=== PATIENT | male | born 1950 | race African-American/Black ===

== ENCOUNTER 2018-09-24 09:57 | Inpatient (IN) ==
--- NOTE | 2018-09-24 11:50 | Diag Imaging Result Doc PS360 ---
EXAM: CHEST-PORTABLE HISTORY: short of breath TECHNIQUE: Single view COMPARISON: 02/11/2018 FINDINGS: The lungs are well expanded. The heart remains mildly enlarged. There is a left-sided pacemaker. No pulmonary edema. No pneumonia. IMPRESSION: Stable mild cardiomegaly. Electronically signed by Ramirez Matt 09/24/2018 11:47 AM
[2018-09-24 12:26] LABS: BASO# 0.04 X1000 (0.0-0.2); BASO% 0.5 % (0.0-0.8); EOS# 0.13 X1000 (0.0-0.7); EOS% 1.7 % (0.0-10.0); HEMATOCRIT 37.7 % (42.0-52.0); HEMOGLOBIN 12.5 g/dL (14.0-18.0); IMM GRAN# 0.09 X1000 (0.0-0.04); IMM GRAN% 1.2 % (0.0-0.5); LYMPH# 1.69 X1000 (1.2-3.4); LYMPH% 22.1 % (20.5-51.1); MCH 29.8 PG (27-31); MCHC 33.2 g/dL (33-37); MONO% 6.5 % (1.7-9.3); NEUT# 5.19 X1000 (1.4-6.5); PLT 156 X1000 (130-400); RBC 4.19 XMIL (4.7-6.1); RDW 14.4 % (11.5-14.5); WBC 7.64 X1000 (4.8-10.8)
[2018-09-24 13:16] LABS: ALB/GLOB RATIO 1.7; ALBUMIN 4.5 g/dL (3.5-5.0); CALCIUM 10.2 mg/dL (8.8-10.2); CREATININE 2.8 mg/dL (0.7-1.2); POTASSIUM 3.4 mmol/L (3.5-5.1); TOTAL BILIRUBIN 0.57 mg/dL (0.20-1.00); TOTAL PROTEIN 7.1 g/dL (6.3-8.3)
[2018-09-24] MEDS ORDERED: LASIX IV ONE (14:28)
[2018-09-24] MEDS ORDERED: TYLENOL PO PRN (14:34)
[2018-09-24 15:47] LABS: CK INDEX 1.3 (0.0-2.5); CK-MB 4.34 ng/mL (0.0-5.0)
--- NOTE | 2018-09-24 16:21 | PROVIDER DOCUMENTATION ---
This chart was entered by Savannah Monsivais Scribe, acting as scribe for Ghazal Beasley MD. HPI-General Adult - General Chief Complaint: Edema Stated Complaint: EDEMA/FOOT Time Seen by Provider: 09/24/18 10:59 Source: patient Allergies/Adverse Reactions: Patient Allergies Allergy/AdvReac Type Severity Reaction Status Date / Time No Known Allergies Allergy Verified 02/11/18 23:07 Home Medications: Home Medication List Medication Instructions Recorded Confirmed Last Taken Type Carvedilol [Coreg] 25 mg PO BID 04/19/13 02/11/18 02/11/18 History Furosemide [Lasix] 40 mg PO BID 04/19/13 02/11/18 02/11/18 History Metolazone [Zaroxolyn] 5 mg PO DAILY 04/19/13 02/11/18 02/11/18 History Potassium Chloride E.r. [Klor-Con] 10 meq PO DAILY 04/19/13 02/11/18 02/11/18 History Spironolactone [Aldactone] 12.5 mg PO DAILY 04/19/13 02/11/18 02/11/18 History LISINOpril [Prinivil] 10 mg PO DAILY 06/11/13 02/11/18 02/11/18 History Levothyroxine [Synthroid] 175 microgm PO DAILY 05/12/15 02/11/18 02/11/18 History Sitagliptin [Januvia] 100 mg PO DAILY 11/01/17 02/11/18 02/11/18 History Colchicine 0.6 mg PO Q6HR PRN #10 cap 12/08/17 02/11/18 Unknown Rx Oxycodone HCl/Acetaminophen 1 ea PO Q4H PRN PRN #10 tab 12/08/17 02/11/18 Unknown Rx [Percocet 7.5-325 mg Tablet] Apixaban [Eliquis] 5 mg PO BID #60 tab 01/30/18 02/11/18 02/11/18 Rx Pregabalin [Lyrica] 100 mg PO BID capsule 01/30/18 02/11/18 02/11/18 Rx - History of Present Illness -Gen Adult Nature of Presenting Problems: Patient is a 67 year old male who presents to the ED with right ankle swelling. Patient's son states swelling has been present for "a while". Patient denies pain to right ankle. Patient states mild shortness of breath. Location of Pain/Injury: reports: none Pain Radiation: reports: no radiation Quality of Pain: reports: none Severity: reports: mild Onset/Duration: reports: other ("a while") Timing: reports: still present Context/Activities at Onset: reports: light activity Modifying Factors: improves with: nothing Associated Symptoms: reports: shortness of breath, other (swelling to right ankle) Similar Symptoms Previously?: Yes Recently seen or treated by another doctor?: No Review of Systems - Adult - REVIEW OF SYSTEMS - ADULT Constitutional: reports: no symptoms reported Eyes: reports: no symptoms reported Ears, Nose, Mouth & Throat: reports: no symptoms reported Cardiovascular: reports: no symptoms reported Respiratory: reports: shortness of breath. denies: cough, wheezing Gastrointestinal: reports: no symptoms reported Genitourinary: reports: no symptoms reported Musculoskeletal: reports: other (right ankle swelling). denies: back pain, neck pain Integumentary: reports: no symptoms reported Neurological: reports: no symptoms reported Psychiatric: reports: no symptoms reported Endocrine: reports: no symptoms reported Hematologic/Lymphatic: reports: no symptoms reported Allergic/Immunologic: reports: no symptoms reported All Other Systems: Reviewed and Negative Past History - Adult - PAST MEDICAL HISTORY-ADULT Review of Records: reports: Nursing Assessment Review, Medications Reviewed, Social history reviewed & non-contributory. Major Childhood Illnesses: reports: denies history Cardiovascular: reports: CHF, HTN, hyperlipidemia, AL, pacemaker Respiratory: reports: COPD Gastrointestinal: reports: GERD Obstetrical/Gynecological: reports: denies history Genitourinary: reports: kidney disease Musculoskeletal: reports: denies history Neurological: reports: CVA Psychiatric: reports: denies history Endocrine/Immune: reports: Diabetes, thyroid disorder Other Conditions: reports: denies history - PRIOR SURGERIES/PROCEDURES Surgical/Procedure History: reports: pacemaker, orthopedic (extremity), other ( thyroidectomy) - IMMUNIZATION STATUS Childhood Immunizations: See Nurse Assessment Flu Vaccine: See Nurse Assessment - FAMILY HISTORY Family History: reviewed, not pertinent - SOCIAL HISTORY Smoking: denies Substance Use: denies Living Situation: family Physical Exam-General - PHYSICAL EXAM-ADULT Initial Vital Signs Reviewed: Yes - CONSTITUTIONAL General Appearance: alert, no apparent distress - HEAD, EARS, NOSE, MOUTH & THROAT HENMT: normal ENT inspection - NECK Neck: normal inspection - RESPIRATORY Respiratory: chest non-tender, lungs clear, normal breath sounds - CARDIOVASCULAR Cardiovascular: normal peripheral pulses, regular rate, rhythm - GASTROINTESTINAL (ABDOMEN) Abdominal Exam: non tender, soft - MUSCULOSKELETAL Extremity: non-tender, swelling (bilateral ankles. right worse than left) - SKIN Integumentary: normal color, normal turgor, warm/dry - NEUROLOGIC Neurologic: grossly normal - PSYCHIATRIC Psych/Mental Status: normal mood/affect, oriented x 3 Progress - PLAN OF CARE/RESULTS Progress/Plan/Lab Results: Vital Signs - 8 hr 09/24/18 10:12 Temperature 97.5 F L Pulse Rate 93 H Respiratory Rate 20 Blood Pressure 106/69 O2 Sat by Pulse Oximetry 100 Result Diagrams: 09/24/18 11:58 09/24/18 11:58 - XRAY 1 XRAY Study: Chest Impression: See EMR Report ( EXAM: CHEST-PORTABLE HISTORY: short of breath TECHNIQUE: Single view COMPARISON: 02/11/2018 FINDINGS: The lungs are well expanded. The heart remains mildly enlarged. There is a left-sided pacemaker. No pulmonary edema. No pneumonia. IMPRESSION: Stable mild cardiomegaly. Electronically signed by Ramirez Matt 09/24/2018 11:47 AM 09/24/18 1147 Interpreting Physician: Ramirez Matt MD Dictated Date/Time: 09/24/18 1147 cc: Ghazal Beasley MD; João Connelly MD) - ULTRASOUND (By Radiology) 1 US Study: Lower Ext (right) Impression: Normal (per US tech. no DVT present.) - CONSULTS/PCP/HOSPITALIST Notification #1 *Consult/PCP/Hospitalist*: TAMIKA Sherman for Hospitalist Time Discussed: 13:54 Reason/Comments: Dr. Beasley consulted with Whit about patient. Consult Disposition: other (repeat EKG and trop.) Departure - Departure Date of Disposition Decision: 09/24/18 Time of Disposition Decision: 14:01 DIAGNOSIS: Leg edema, CHF (congestive heart failure) Disposition: ADMITTED INPATIENT 09 Certified Medical Emergency: Emergent Condition: Stable - Critical Care Note This patient required my direct & personal management of CC.: No Attestation - Physician/ KYLE Attestation The physician spent face to face time with patient:: Yes Advanced Practice Provider documentation review:: Supervising physician onsite and consulted in the evaluation and care of this patient. The physician did have a face to face encounter with the patient. This chart was documented by the indicated scribe, (Savannah Monsivais Scribe) and accurately reflects the services I performed and decisions made by me, Ghazal Beasley MD, as attested by the provider's signature.
--- NOTE | 2018-09-24 16:25 | HISTORY AND PHYSICAL ---
PRIMARY CARE PROVIDER: Dr. João Connelly. STRUCTURAL ANALYSIS ENGINEER: Dr. Beach. CHIEF COMPLAINT: Shortness of breath and right lower extremity swelling. HISTORY OF PRESENT ILLNESS: Mr. Jaime Levi is a 67-year-old, male with a medical history of nonischemic dilated cardiomyopathy, systolic congestive heart failure with an ejection fraction of 25% to 34%, diabetes mellitus type 2, CKD stage 3b, dementia, who now presents with complaints of right lower extremity swelling that has worsened over the last three weeks along with dizziness, nausea, along with complaints of shortness of breath and more difficulty getting around. He does state that occasionally he does have chest pain with the last time being around a month ago. He occasionally gets dizzy just from sitting. He has been taking his Lasix and doubling up on it but states that it has not helped. Upon presentation, he has an elevated troponin. His kidney function is almost at baseline. He has elevation in his proBNP. Will get him admitted and consult Cardiology for acute heart failure. PAST MEDICAL HISTORY: 1. CKD stage 3b. 2. Dilated nonischemic cardiomyopathy. 3. Systolic congestive heart failure with EF of 25% to 34% in September 2017. 4. Diastolic dysfunction. 5. Pulmonary artery hypertension with pulmonary pressure systolic of 48 to 53 mmHg. 6. Iron deficiency anemia. 7. Paroxysmal atrial fibrillation. 8. Hypothyroidism. 9. Diabetes mellitus type 2. 10.Dementia. SURGICAL HISTORY: 1. Biventricular AICD. 2. Thyroidectomy. 3. Carpal tunnel repair. 4. Hemorrhoidectomy. SOCIAL HISTORY: . Lives at home. Son is at bedside. Denies tobacco. Has a history of smoking. Denies alcohol or illicit drug use. FAMILY HISTORY: Denies. ALLERGIES: No known drug allergies. HOME MEDICATIONS: Not verified, but will need to get those reconciled. Looks like the last time they were reconciled was, I believe, January of 2018. These medications include, 1. Coreg 25 mg p.o. twice daily. 2. Lasix 40 mg p.o. twice daily. 3. Synthroid 175 mcg p.o. daily. 4. Lisinopril 10 mg p.o. daily. 5. Zaroxolyn 5 mg p.o. daily. 6. Potassium 10 mEq p.o. daily. 7. Januvia 100 mg p.o. daily. 8. Aldactone 12.5 mg p.o. daily. 9. Colchicine 0.6 mg p.o. every six hours p.r.n. 10.Eliquis 5 mg p.o. twice daily. 11.Percocet 7.5 one tablet p.o. every four hours p.r.n. 12.Lyrica 100 mg p.o. twice daily. REVIEW OF SYSTEMS: A 14-point review of systems are complete and all are negative except as for those mentioned above in HPI. PHYSICAL EXAMINATION: VITAL SIGNS: Temperature 97.5. Heart rate 93. Respiratory rate 20. Blood pressure 106/69. O2 saturation 100% on room air. Height 5 feet 9 inches tall, 225 pounds, BMI 33.2. GENERAL: Mr. Jaime Levi is a 67-year-old male. He is in no acute distress. He is able to answer questions appropriately. HEENT: Atraumatic and normocephalic. Pupils are equal, round and reactive to light. Extraocular movements intact. Mucous membranes moist. NECK: Trachea midline. CARDIOVASCULAR: Irregularly irregular rate and rhythm. No rubs, gallops, or murmurs. He has +2 right lower extremity edema. +1 left lower extremity edema. +2 dorsalis and pedal pulses. +2 radial pulses. Negative for JVD or carotid bruits. PULMONARY: Clear to auscultation with bilateral breath sounds. No accessory muscle use or work of breathing noted. GASTROINTESTINAL: Soft, nontender, nondistended. Positive bowel sounds x4. EXTREMITIES: Moves all extremities equally with full range of motion. NEUROLOGICAL: Alert and oriented x3. Follows commands. Sensory is intact. SKIN: Warm, dry, and intact. LABORATORY DATA: White blood cells 7,000, hemoglobin 12, hematocrit 37, platelet count 156. Sodium 135, potassium 3.4, BUN 73, creatinine 2.8, glucose 205, calcium 10.2, bilirubin 0.57, AST 14, ALT 13. Troponin 0.109. proBNP 1006. Albumin 4.5. IMAGING: Chest x-ray: Stable mild cardiomegaly. ASSESSMENT AND PLAN: 1. Acute on chronic systolic congestive heart failure with history of dilated cardiomyopathy, pulmonary artery hypertension, and diastolic dysfunction. Will give him a one-time dose of 80 of intravenous Lasix and continue him on 40 intravenously twice daily. Will resume home medications for his congestive heart failure and consult Cardiology. Currently waiting for reconciliation of home medications. 2. Chronic kidney disease, stage 3b, with some mild acute kidney injury. The creatinine is only mildly elevated compared to his baseline. Baseline creatinine is anywhere from 1.6 to 2.2 and his creatinine currently now is 2.8. Will monitor daily. 3. Diabetes mellitus type 2. Will do patterned blood glucoses. Sliding scale insulin. 4. History of paroxysmal atrial fibrillation. Will continue with Eliquis once it is verified. 5. Hypothyroidism. Continue Synthroid. 6. Deep venous thrombosis prophylaxis with sequential compression devices. 7. Complaints of right lower extremity edema but it was negative for deep venous thrombosis on ultrasound. Dictated by TAMIKA Solo for Amarjit Dunn MD cc: TAMIKA Solo MD I have seen and examined Mr. Levi today. No family present. He said son was there earlier. I have reviewed his labs and imaging studies. Mr Levi presents with FIELDS with chest discomfort. He seem to be in acute on chronic CHF due to severe dilated ischemic cardiomyopathy. I agree with the above HPI and the plan reflects my opinion discussed with the COAL [employer]IKER. POOJA
[2018-09-24] MEDS: HUMULIN R SUBQ SCH ×2 (17:17→22:40)
--- NOTE | 2018-09-24 17:35 | ED EKG INTERP ---
This chart was entered by Savannah Monsivais Scribe, acting as scribe for Ghazal Beasley MD. EKG Interpretation - EKG Time of EKG reading by physician:: 17:08 EKG Read and Signed by:: Ghazal Beasley EKG Interpretation (*Must complete 3 of following elements*): Abnormal ( nonspecific T wave abnormality.) Rate: 68 Rhythm: sinus rhythm with 1st degree AV block [place]: left Comments: possible left atrial enlargement; nonspecific intraventricular block; Attestation - Physician/ KYLE Attestation The physician spent face to face time with patient:: Yes Advanced Practice Provider documentation review:: Supervising physician onsite and consulted in the evaluation and care of this patient. The physician did have a face to face encounter with the patient. This chart was documented by the indicated scribe, (Savannah Monsivais Scribe) and accurately reflects the services I performed and decisions made by me, Ghazal Beasley MD, as attested by the provider's signature.
[2018-09-24] MEDS: LASIX IV SCH (21:54)
[2018-09-24] MEDS: LYRICA PO SCH (22:40)
[2018-09-24 23:15] LABS: CK INDEX 1.1 (0.0-2.5); CK-MB 4.34 ng/mL (0.0-5.0)
[2018-09-25 05:17] LABS: BASO# 0.06 X1000 (0.0-0.2); BASO% 0.8 % (0.0-0.8); EOS# 0.12 X1000 (0.0-0.7); EOS% 1.6 % (0.0-10.0); HEMOGLOBIN 13.7 g/dL (14.0-18.0); IMM GRAN# 0.05 X1000 (0.0-0.04); IMM GRAN% 0.7 % (0.0-0.5); MCH 29.6 PG (27-31); MCHC 33.4 g/dL (33-37); MCV 88.6 FL (81-99); MONO# 0.44 X1000 (0.11-0.59); MONO% 5.9 % (1.7-9.3); MPV 11.1 FL (7.4-10.4); NEUT# 5.02 X1000 (1.4-6.5); PLT 149 X1000 (130-400); RBC 4.63 XMIL (4.7-6.1); RDW 14.6 % (11.5-14.5); WBC 7.49 X1000 (4.8-10.8)
[2018-09-25 05:23] LABS: INR 1.06; PROTIME 14.6 Seconds (11.0-16.0); PTT 31.5 Seconds (22.3-41.8)
[2018-09-25 05:44] LABS: ALB/GLOB RATIO 1.5; ALBUMIN 4.3 g/dL (3.5-5.0); CALCIUM 9.9 mg/dL (8.8-10.2); CREATININE 2.6 mg/dL (0.7-1.2); MAGNESIUM 1.6 mg/dL (1.5-2.7); POTASSIUM 3.1 mmol/L (3.5-5.1); TOTAL BILIRUBIN 0.8 mg/dL (0.20-1.00); TOTAL PROTEIN 7.2 g/dL (6.3-8.3)
[2018-09-25 06:07] LABS: CK INDEX 0.9 (0.0-2.5); CK-MB 4.2 ng/mL (0.0-5.0)
[2018-09-25] MEDS: HUMULIN R SUBQ SCH ×4 (06:16→20:03)
--- NOTE | 2018-09-25 06:49 | Diag Imaging Result Doc PS360 ---
CHEST-PORTABLE - 09/25/2018 INDICATION: sob COMPARISON: 09/24/2018 FINDINGS: Stable pacemaker. Stable mild cardiomegaly. Pulmonary vascularity is top normal. No infiltrates or edema. IMPRESSION: Cardiomegaly. No change from prior. Electronically signed by David Grey 09/25/2018 6:47 AM
--- NOTE | 2018-09-25 07:23 | EKG Report ---
Test Performed on : 09/25/2018 06:52:06 AM Test Reason : chest pain Blood Pressure : / mmHG Vent. Rate : 091 BPM Atrial Rate : 441 BPM P-R Int : 000 ms QRS Dur : 164 ms QT Int : 432 ms P-R-T Axes : 000 -70 065 degrees QTc Int : 531 ms Atrial fibrillation. Left axis deviation Right bundle branch block Septal infarct , age undetermined Abnormal ECG When compared with ECG of 24-SEP-2018 17:08, (Unconfirmed) Atrial fibrillation. has replaced Sinus rhythm. Right bundle branch block has replaced Nonspecific intraventricular block Septal infarct is now present Confirmed by Jayda GARCIA, Silvano Parra ([id number]) on 09/26/2018 7:00:26 AM
--- NOTE | 2018-09-25 07:33 | EKG Report ---
Test Performed on : 09/24/2018 5:08:42 PM Test Reason : shortness of breath Blood Pressure : / mmHG Vent. Rate : 068 BPM Atrial Rate : 068 BPM P-R Int : 210 ms QRS Dur : 128 ms QT Int : 412 ms P-R-T Axes : 061 -49 074 degrees QTc Int : 438 ms Sinus rhythm. with 1st degree AV block. Possible Left atrial enlargement Left axis deviation Nonspecific intraventricular block Nonspecific T wave abnormality Abnormal ECG When compared with ECG of 11-FEB-2018 21:15, Significant changes have occurred Unconfirmed Result
[2018-09-25] MEDS ORDERED: POTASSIUM CHLORIDE 20% LIQUID PO ONE (08:04)
[2018-09-25] MEDS: LYRICA PO SCH ×2 (08:17→20:06)
[2018-09-25] MEDS: LASIX IV SCH ×2 (08:17→20:02)
--- NOTE | 2018-09-25 08:27 | CARDIOLOGY CONSULTATION ---
DATE: 09/24/2018 REQUESTING PHYSICIAN: Hospitalist Service. REASON FOR CONSULTATION: Congestive heart failure, swelling, dyspnea. HISTORY: Mr. Levi is a pleasant 67-year-old black gentleman who is known to our service. He normally follows with Dr. Beach. At this time, he presented to the emergency room because for the past few days he has noticed progressive swelling of his legs associated with increasing dyspnea. According to his only son who visits him daily, he spends most of the time sleeping, and he walks with a cane a little bit inside the house. Lately, he has been more lethargic and doing less physical action than usual and his legs continue to swell up in spite of seemingly greater doses of diuretics. The patient denies having any chest pain. He seems to be very comfortable lying in bed. As I interview him and I talk to his son, he falls asleep very easily. A chest x-ray was done today that shows cardiomegaly with the presence of an internal cardioverter- defibrillator with no obvious infiltrates. His lungs appear to be relatively clear. The radiologist's report says stable mild cardiomegaly. His 12-lead EKG done a 5:08 p.m. shows sinus rhythm with a first-degree A-V block, left anterior fascicular block, and poor R-wave progression across the precordial leads. PAST HISTORY: The patient's past history is positive for a dilated nonischemic cardiomyopathy. He has had previous heart catheterization in 2007 that revealed a dilated ventricle with depressed systolic function and elevation of left ventricular end diastolic pressure. He has had atrial arrhythmia and he has been ablated for atrial flutter. He has had previous cardioversions. He has hypertension, diabetes mellitus, hypothyroidism. He has some degree of chronic kidney disease. SURGICAL HISTORY: His surgical history has been positive for hemorrhoidectomy and implantation of internal cardioverter-defibrillator. SOCIAL HISTORY: He lives by himself. He has only one son, and he has several grandchildren. He is not a smoker. He is retired. FAMILY HISTORY: Mother had coronary disease. REVIEW OF SYSTEMS: Besides the aforementioned positives in the HPI and H and P , it is really noncontributory. He is really limited to perform physical activity because of dyspnea and also because of some medical arthritis. HOME MEDICATIONS: His home medications listed at the time of this admission include the following: He is supposed to be on Eliquis 5 mg twice a day, Coreg 25 twice a day, colchicine as needed, furosemide 40 mg twice a day, Synthroid 175 mcg daily, lisinopril 10 mg daily, metolazone 5 mg daily, potassium chloride, Lyrica, Januvia, spironolactone. PHYSICAL EXAMINATION: Vital signs: Blood pressure is 91/70, temperature 97.5, pulse 81, respirations 15. General: He is awake, alert, in no distress. He is very pleasant. He follows commands. HEENT: Unremarkable with some suggestion of increased jugular venous pressure. Chest: Diminished breath sounds at the bases, no rales. Heart sounds are regular and rhythmic. I do not hear a gallop or murmur. Abdomen: Soft, nontender, no masses, no hepatomegaly. Extremities: Showed 1+ to 2+ brawny edema. Pulses are diminished. Neurological: Cranial nerves are normal. He answers appropriately. Mentation is normal. BLOOD WORK: His sodium is 135, potassium 3.4, BUN 33, creatinine 2.8. proBNP is 1006. Albumin 4.5. Glucose is 205. IMPRESSION: 1. Patient who has worsening of chronic systolic heart failure, CHF class III to IV, a low ejection fraction. This is a nonischemic dilated cardiomyopathy. 2. History of previous atrial flutter status post ablation. 3. History of ventricular arrhythmia status post implantation of AICD. 4. History of diabetes. 5. History of hypertension. 6. Hypothyroidism. 7. Worsening chronic kidney disease, acute on chronic. RECOMMENDATION: At this time, I would suggest to pursue optimization of his fluid status by adjustment of his diuretics. It might be important to consider a consultation with Nephrology for an expert opinion on management of his case from that renal viewpoint. From the cardiac viewpoint, I will probably cut down on the current doses of carvedilol and try to optimize his potassium levels. We will follow him along. Thank you for the opportunity to participate in his evaluation. Best regards. cc: Aldo Gonzalez MD [facility]ENTERAlber
[2018-09-25] MEDS: ZOFRAN IV PRN (09:15)
--- NOTE | 2018-09-25 09:18 | ECHO REPORT ---
ORDER DATE: 09/24/2018 INDICATION: COPD. Shortness of breath. CHF. Hypertension. Hyperlipidemia. FINDINGS: 1. The right atrium appears normal in size at 3.5 cm. Linear echodensity consistent with device lead is seen in the right heart chambers. 2. Mild tricuspid regurgitation. RV systolic pressure of 51. 3. There is a significant reduction in RV systolic function that appears to be moderate to severe. 4. Trace pulmonic insufficiency. 5. Mild left atrial enlargement at 4.3 cm. 6. No mitral valve prolapse. Mild mitral regurgitation. 7. LV dilatation with an end-diastolic dimension of 7 cm. Normal wall thicknesses with a posterior and interventricular septal wall thickness of 0.9 cm each. Severe reduction in LV systolic function with an estimated EF in the 15 to 20 percent range with severe global hypokinesis. Definity echo contrast was used. No evidence of left ventricular thrombus was identified. 8. The aortic valve appears to open well. There is no evidence of stenosis or insufficiency. The valve is trileaflet. 9. The aorta appears normal in visualized segments. 10. No pericardial effusion seen. cc: MD Whit Lujan CRNP
--- NOTE | 2018-09-25 10:29 | CARDIOLOGY PROGRESS NOTE ---
DATE: 09/25/2018 CHIEF COMPLAINT: Shortness of breath, swelling. SUBJECTIVE: Mr. Levi had an uneventful night. He is not having any pain. He had a pleasant night. He is arousable. He is awake. His legs appear to be slightly less swollen. OBJECTIVE: Vital signs: Temperature 97.1, blood pressure 97/70, pulse 92, respirations 19. General: He is awake. HEENT: Slight prominence of the jugular veins. Chest: Sounds clear to auscultation and percussion. Cardiac: Heart sounds are slightly irregular. I do not hear any gallop or murmur. Abdomen: Obese, nontender. Extremities: Showed trace edema. Neurological: Follows commands, moves four extremities. BLOOD WORK: Hemoglobin 13.7, hematocrit 41%. Sodium 137, potassium 3.1, BUN 70, creatinine 2.6. BUN and creatinine are better than yesterday. CPK is 488. His troponins were 0.109, 0.098, 0.092. His proBNP was 1006. His chest x-ray done yesterday showed stable mild cardiomegaly. IMPRESSION: 1. Patient with chronic systolic heart failure secondary to dilated nonischemic cardiomyopathy. 2. Acute renal dysfunction probably secondary to the low cardiac output state. 3. Obesity. Body mass index 34.5. 4. History of permanent atrial fibrillation. 5. Status post AICD, biventricular. 6. History of hypothyroidism and gout. RECOMMENDATION: At this time, I would suggest to continue present therapy. I would keep him on IV diuretics, replace potassium, and observe. The best intervention at this time may be just to back down on the beta-blockers and also on the vasodilators to try to keep him at a more stable systolic blood pressure to ensure adequate kidney perfusion. At this point in time, I would refrain from initiating inotropic agents. I think that those of carvedilol 25 mg twice a day that he was on may be too much for him. Also, lisinopril may need to be cut down. We will follow him. cc: Aldo Gonzalez MD
[2018-09-25] MEDS: POTASSIUM CHLORIDE 20% LIQUID PO SCH (14:40)
--- NOTE | 2018-09-25 16:19 | PROGRESS NOTE ---
DATE: 09/25/2018 SUBJECTIVE: Mr. Levi was admitted on 09/24/2018, came in. He is a patient followed by Dr. Beach. Dr. João Connelly. A 67-year-old male short of breath, lower extremity swelling. He has a nonischemic dilated cardiomyopathy, systolic congestive heart failure with ejection fraction 25% to 34%, diabetes mellitus type 2, chronic kidney disease stage IIIB, dementia, who presented with complaints of right lower extremity swelling that had worsened over the last 3 weeks. Complains of shortness of breath and more difficulty getting around. He was getting dizzy just from sitting. He has Lasix he had doubled up on, but states it did not seem to help him. PAST MEDICAL HISTORY: 1. Chronic kidney disease stage IIIB. 2. Dilated ischemic cardiomyopathy. 3. Systolic congestive heart failure. Ejection fraction 25% to 34% in September 2017. It was measured. 4. Diastolic dysfunction. 5. Pulmonary artery hypertension. Pulmonary pressures in the 48 to 53 mmHg range. 6. Iron deficiency anemia. 7. Paroxysmal atrial fibrillation. 8. Hypothyroidism. 9. Diabetes mellitus type 2. 10. Dementia. SURGICAL HISTORY: 1. Had a biventricular AICD placed. 2. Status post thyroidectomy. 3. Status post carpal tunnel repair. 4. Hemorrhoidectomy. PHYSICAL EXAMINATION: General: Admitted with acute on chronic systolic congestive heart failure, dilated cardiomyopathy, who is on the unit. He says he feels much better. Breathing much better. He is not eating much. She does not have much appetite at this time. Vital Signs: Temperature 97.9 degrees, pulse 90, respirations 15, blood pressure 118/87. Eyes: Pupils are equal and round. Lungs: Clear in all lung ramirez. Cardiovascular exam: Regular rhythm and rate without murmur or S3. Abdomen: Soft. Skin: Warm and dry. : Urine output was 4200 mL blood sugars 220, 154 and 186. ASSESSMENT AND PLAN: 1. Acute on chronic systolic heart failure. Dilated nonischemic cardiomyopathy. Appears to be doing better. 2. Acute renal dysfunction, probably secondary low cardiac output state. 3. Obesity. Body mass index 34.5. 4. History of permanent atrial fibrillation, rate is controlled. 5. Status post automatic implantable cardioverter defibrillator, biventricular. 6. History of hypothyroidism and gout. BLOOD WORK: Note his blood work from this morning: White count 7490, hematocrit is 41, platelet count is 149,000. Chemistries: Sodium 137, potassium 3.1 chloride 92. BUN 70, creatinine 2.6. Creatinine has come down from 2.8. Review of his orders: Continue his Lasix 40 mg IV q. 12 hours. He is getting potassium supplement 40 mEq daily, Lyrica 75 mg b.i.d. and seems to be doing better. I am going to let him move to the floor. Continue on traffic monitor specialist. cc: Howard Kaba MD
[2018-09-25] MEDS ORDERED: TEARISOL OPH SOLUTION BOTH EYES PRN (19:07)
[2018-09-26 06:06] LABS: CREATININE 2.5 mg/dL (0.7-1.2); MAGNESIUM 1.8 mg/dL (1.5-2.7); POTASSIUM 3.5 mmol/L (3.5-5.1)
[2018-09-26] MEDS: HUMULIN R SUBQ SCH ×4 (06:42→21:40)
[2018-09-26] MEDS: POTASSIUM CHLORIDE 20% LIQUID PO SCH (08:15)
[2018-09-26] MEDS: LASIX IV SCH (08:15)
[2018-09-26] MEDS: LYRICA PO SCH ×2 (08:15→21:39)
[2018-09-26] MEDS ORDERED: JANUVIA PO SCH (09:00)
--- NOTE | 2018-09-26 09:11 | PROGRESS NOTE ---
DATE: 09/26/2018 SUBJECTIVE: Mr. Levi is sitting up. He says he feels good. He is ready go home. He is still hurting. We need to adjust his Lyrica up. He is taking 150 mg of Lyrica twice a day. He remains afebrile. OBJECTIVE: Vital Signs: Temperature 97.2 degrees, pulse 112, respirations 14, blood pressure 107/70. HEENT: Pupils are equal and round. Lungs: Clear in all lung ramirez. Cardiovascular Examination: Regular rhythm and rate without murmur or S3. Abdomen: Soft. Skin: Warm and dry. Is and Os: Urine output is 3700 mL. Laboratory Data: Blood sugar 154, 186, 178. ASSESSMENT AND PLAN: 1. Patient with chronic systolic heart failure secondary to dilated nonischemic cardiomyopathy. We are going to continue present therapy. I am going to keep him on intravenous diuretics, replace the potassium, and observe. The beta blockers, we backed down on those. He is also on vasodilators to keep him more stable. He wanted to refrain from initiating inotropic agents. He feels that the Coreg is probably too much for him and the lisinopril may need to be cut down. We are going to move him to the floor. I will discuss with cardiology and see if they think he is ready go home this afternoon. 2. Acute renal dysfunction, probably secondary to low cardiac output. His creatinine is at 2.5. When he presented, it was 2.8 so it appears to have improved. 3. Obesity. Body index is 34.5. 4. History of permanent atrial fibrillation. Rate appears controlled. 5. Status post automatic implantable cardioverter defibrillator, biventricular. 6. History of hypothyroidism. 7. History of gout. 8. Chest x-ray from yesterday, cardiomegaly, really no change, stable pacemaker. Pulmonary vascularity is top normal. No infiltrates or edema. His blood pressures are running between 92-129/64-84. CURRENT ORDERS: Still on Lasix 40 mg q.12. We increased the Lyrica to 150 mg b.i.d. cc: Howard Kaba MD
[2018-09-26] MEDS: ALDACTONE PO SCH (09:49)
[2018-09-26] MEDS: SYNTHROID PO SCH (09:49)
[2018-09-26] MEDS: ELIQUIS PO SCH ×2 (09:49→21:40)
--- NOTE | 2018-09-26 13:39 | EKG Report ---
Test Performed on : 09/26/2018 11:48:28 AM Test Reason : NO EKG ORDER FOR MUSE Blood Pressure : / mmHG Vent. Rate : 105 BPM Atrial Rate : 105 BPM P-R Int : 000 ms QRS Dur : 150 ms QT Int : 354 ms P-R-T Axes : 000 -72 069 degrees QTc Int : 467 ms Wide QRS rhythm. Left axis deviation Nonspecific intraventricular block Abnormal ECG When compared with ECG of 25-SEP-2018 06:52, Wide QRS rhythm. has replaced Atrial fibrillation. Confirmed by Jayda GARCIA, Silvano Parra ([id number]) on 09/27/2018 7:10:32 AM
--- NOTE | 2018-09-26 15:56 | PROGRESS NOTE ---
DATE: 09/26/2018 SUBJECTIVE: Patient continues without chest discomfort or dyspnea on room air. OBJECTIVE: Blood pressure 136/100, heart rate 108, and oxygen saturation 96% on room air.Neck: Neck vein distention is not evident. Chest: Clear to auscultation bilaterally. Cardiovascular: Reveals irregular rate and rhythm without appreciable murmur or gallop. Extremities: Without edema. DIAGNOSTIC: Telemetry demonstrates atrial fibrillation. He previously had been in sinus rhythm earlier during this hospital stay. LABORATORY DATA: Sodium 137, potassium 3.5, chloride 94, carbon dioxide 27, BUN 62, creatinine 2.5 and glucose 178. IMPRESSION: 1. Acute on chronic systolic heart failure. This appears to improve with diuresis. 2. Severe nonischemic cardiomyopathy. 3. Moderate pulmonary hypertension with evidence of right ventricular dysfunction on echocardiography. 4. Obesity. 5. Paroxysmal atrial fibrillation. Patient in sinus rhythm on admission but now in atrial fibrillation. 6. Status post biventricular implantable defibrillator/pacemaker. 7. Hypothyroidism. RECOMMENDATIONS: 1. Status post biventricular pacemaker/implantable defibrillator. 2. Acute on chronic renal dysfunction. 3. Resume Coreg at 6.25 mg p.o. b.i.d. 4. Switch from IV Lasix to 40 mg p.o. daily. 5. May consider putting patient back on amiodarone after review of office records. The patient apparently had been amiodarone in the past but this has been discontinued. cc: Josue Beach MD
[2018-09-26] MEDS: COREG PO SCH (21:40)
[2018-09-27] MEDS: ZOFRAN IV PRN ×2 (00:21→10:06)
[2018-09-27] MEDS: HUMULIN R SUBQ SCH ×4 (06:45→21:20)
--- NOTE | 2018-09-27 10:00 | PROGRESS NOTE ---
DATE: 09/27/2018 SUBJECTIVE: Mr. Levi said he did not sleep much. They just kept waking him up and he says his breathing is doing all right. He is concerned about his left foot underneath his 5th metatarsal. Just very sore. I do not see any ulcers there. He has calluses on both feet, but I do not see any open ulcer, but it is tender to him and hurts for him to stand up on his left foot. He said something needs to be done. OBJECTIVE: Vital Signs: Temperature 98.3, pulse 87, respirations 16, blood pressure 111/68. Eyes: Pupils are equal and round. Lungs: Clear in all lung ramirez. Cardiovascular: Regular rhythm and rate without murmur or S3. Blood sugar 178, 186, 186. ASSESSMENT AND PLAN: 1. Acute on chronic systolic heart failure, which has improved with diuresis. 2. Severe nonischemic cardiomyopathy. 3. Moderate pulmonary hypertension. No evidence of right ventricular dysfunction on echocardiogram. 4. Obesity. 5. Paroxysmal atrial fibrillation, rate is controlled. 6. Status post biventricular pacemaker defibrillator. 7. Hypothyroidism. Appears euthyroid. 8. Complaining of his left foot. We will get an x-ray of that foot. He had acute renal dysfunction, probably secondary to low cardiac output. His renal function seems to be stable. Creatinine is 2.5, it was 2.8 when he came in. So, we will continue present measures. We will get an x-ray of that foot. cc: Howard Kaba MD
[2018-09-27] MEDS: SYNTHROID PO SCH ×2 (10:29→13:53)
[2018-09-27] MEDS: LYRICA PO SCH ×3 (10:29→22:27)
[2018-09-27] MEDS: POTASSIUM CHLORIDE 20% LIQUID PO SCH ×2 (10:29→13:55)
[2018-09-27] MEDS: ALDACTONE PO SCH ×2 (10:29→13:54)
[2018-09-27] MEDS: COREG PO SCH ×2 (10:30→22:27)
[2018-09-27] MEDS: ELIQUIS PO SCH ×3 (10:30→22:27)
[2018-09-27] MEDS: LASIX PO SCH ×2 (10:30→13:53)
[2018-09-27] MEDS: JANUVIA PO SCH ×2 (10:31→13:54)
--- NOTE | 2018-09-27 12:39 | Diag Imaging Result Doc PS360 ---
EXAM: FOOT 2 VIEWS LEFT INDICATION: L 5th metatarsal pain TECHNIQUE: 2 views COMPARISON: None. FINDINGS: There is irregularity involving the distal shaft of the fifth metatarsal. However, it has the appearance of an old fracture that has healed. Please correlate clinically. There is mild bone spurring at the calcaneus at the Achilles insertion. There is no discrete fracture, dislocation, or significant intrinsic osseous lesion, otherwise. The visualized joint spaces are essentially unremarkable. The surrounding soft tissues are essentially unremarkable by plain radiograph. IMPRESSION: Irregularity involving the distal shaft of the fifth metatarsal with a chronic appearance. No evidence of acute osseous abnormality, otherwise. Electronically signed by Jb Watt 09/27/2018 12:36 PM
--- NOTE | 2018-09-27 15:47 | Extremity Venous Study ---
PROCEDURE NAME: Venous U/S Right Leg - 09/24/2018 RADIATION THERAPIST: Lenin. REQUESTING PHYSICIAN: Dr. Beasley. INDICATIONS: Edema and pain in the right foot. FINDINGS: Deep superficial veins of right lower extremity were visualized along their course. All vessels appeared compressible with forward flow. No evidence of intraluminal thrombus. SUMMARY: No deep or superficial venous thrombosis seen in the right lower extremity. There was reflux [*]the left common femoral vein. cc: Manuel Gaxiola MD
[2018-09-28] MEDS: HUMULIN R SUBQ SCH (07:57)
[2018-09-28 08:43] VITALS: BP 106/71
[2018-09-28] MEDS: LASIX PO SCH (09:39)
[2018-09-28] MEDS: JANUVIA PO SCH (09:39)
[2018-09-28] MEDS: ELIQUIS PO SCH (09:39)
[2018-09-28] MEDS: SYNTHROID PO SCH (09:40)
[2018-09-28] MEDS: ALDACTONE PO SCH (09:40)
[2018-09-28] MEDS: LYRICA PO SCH (09:40)
[2018-09-28] MEDS: COREG PO SCH (09:40)
[2018-09-28] MEDS: POTASSIUM CHLORIDE 20% LIQUID PO SCH (09:41)
--- NOTE | 2018-09-28 10:36 | DISCHARGE SUMMARY ---
ADMISSION DATE: 09/24/2018 DISCHARGE DATE: 09/28/2018 HISTORY OF PRESENT ILLNESS: He is a patient of Dr. João Connelly, presented on 09/24/2018. This is a 67-year-old male, with a medical history of nonischemic cardiomyopathy, systolic congestive heart failure, ejection fraction around 25 to 34 percent, diabetes mellitus type 2, chronic kidney disease stage IIIB, dementia, presented complaining of right lower extremity swelling that has worsened over the last 3 weeks along with dizziness, nausea, complaints of shortness of breath and more difficulty getting around. He has occasionally had some chest pain over last month where he does get dizzy just from sitting. PAST MEDICAL HISTORY: Reviewed again. 1. Chronic kidney disease stage 3B. 2. Dilated nonischemic cardiomyopathy. 3. Systolic congestive heart failure. Ejection fraction 25 to 34 percent, September 2017. 4. Diastolic dysfunction. 5. Pulmonary artery hypertension. Pulmonary systolic pressure is 48 to 53 mmHg. 6. Iron deficiency anemia. 7. Paroxysmal atrial fibrillation. 8. Hypothyroidism. 9. Diabetes mellitus type 2. 10. Dementia. SURGICAL HISTORY: 1. Biventricular AICD. 2. Thyroidectomy. 3. Carpal tunnel repair. 4. Hemorrhoidectomy. ADMISSION DIAGNOSES: 1. Admitted with acute on chronic systolic congestive heart failure, history of dilated cardiomyopathy, pulmonary arterial hypertension, diastolic dysfunction. Gave him a 1 time dose of 80 mg of Lasix initially and then continued on 40 mg twice a day, and he showed good improvement and good compensation. Able to move him out of the unit to the floor. 2. Chronic kidney disease stage 3B. His baseline creatinine is somewhere between 1.6 and 2.2. On admission, his creatinine was 2.8. It came down to 2.5. He was feeling better, breathing comfortably. 3. Diabetes mellitus type 2. Sugars under good control. 4. History of paroxysmal atrial fibrillation. Continue Eliquis. The rate has been controlled. 5. History of hypothyroidism. Appears to be euthyroid so he was requesting to go home. Dr. Beach had been following for cardiology. He improved markedly with diuresis. DISCHARGE DIAGNOSES: 1. Acute on chronic systolic heart failure. Improved with diuresis. 2. Severe nonischemic cardiomyopathy. 3. Moderate pulmonary hypertension and evidence of right ventricular dysfunction on echocardiogram. 4. Obesity. 5. Paroxysmal atrial fibrillation. Rate has been controlled. The patient remained in sinus rhythm during this admission. 6. Status post biventricular implantable defibrillator pacemaker. 7. Hypothyroidism history. He appears to be euthyroid so plan to discharge home. RECOMMENDATION: Status post biventricular pacemaker implantable defibrillator which is functioning well. Renal function seems to have improved. Can resume the Coreg at 6.25 mg b.i.d., and switch him to Lasix p.o. DISCHARGE MEDICATIONS: 1. Eliquis 5 mg b.i.d. 2. He will take his Artificial Tears as needed. 3. Coreg 6.25 mg twice a day. 4. Lasix 40 mg daily every morning. 5. Synthroid 125 mcg a day. 6. Lyrica 150 mg b.i.d. 7. Januvia 100 mg daily. 8. Aldactone 12.5 mg daily. FOLLOWUP: Follow up with his primary care physician. Follow up with Cardiology. cc: Howard Kaba MD
== END 2018-09-28 11:21 | disposition home or self-care (01) | DRG 291 ==
LOC: ED 09:57 → SUATTDRO 15:40 → EDIPHOLD 15:40 → ICU 18:20 → 4N 09-26 13:13
PROVIDERS: ATTEND Emergency Medicine
CPT/HCPCS: 71010; 71045; 73620; 80048; 80053; 82550; 82553; 82948; 83735; 83880; 84484; 85025; 85610; 85730; 93005; 93010; 93306; 93971; 94761; 94799; 96374; 99285; A9270; C8929; J1940; J2405; Q9957; XXXXX

== ENCOUNTER 2018-11-09 08:56 | Inpatient (IN) ==
[2018-11-09 09:47] LABS: BASO# 0.04 X1000 (0.0-0.2); BASO% 0.5 % (0.0-0.8); EOS# 0.02 X1000 (0.0-0.7); EOS% 0.2 % (0.0-10.0); HEMATOCRIT 43.2 % (42.0-52.0); HEMOGLOBIN 14.2 g/dL (14.0-18.0); IMM GRAN# 0.03 X1000 (0.0-0.04); IMM GRAN% 0.3 % (0.0-0.5); LYMPH% 13.7 % (20.5-51.1); MCH 29.8 PG (27-31); MCHC 32.9 g/dL (33-37); MCV 90.6 FL (81-99); MONO# 0.63 X1000 (0.11-0.59); MONO% 7.2 % (1.7-9.3); MPV 11.2 FL (7.4-10.4); NEUT# 6.83 X1000 (1.4-6.5); NEUT% 78.1 % (42.2-75.2); PLT 143 X1000 (130-400); RBC 4.77 XMIL (4.7-6.1); RDW 15.1 % (11.5-14.5); WBC 8.75 X1000 (4.8-10.8)
[2018-11-09 09:52] LABS: URINE SOURCE CATH
--- NOTE | 2018-11-09 09:55 | PROVIDER DOCUMENTATION ---
This chart was entered by Debra Garcia Scribe, acting as scribe for Ramona Moctezuma CRNP. HPI-Abdominal Pain/GI Problem - General Chief Complaint: Abdominal Pain Stated Complaint: abd pain Time Seen by Provider: 11/09/18 09:08 Source: patient, family (ex-), EMS Allergies/Adverse Reactions: Patient Allergies Allergy/AdvReac Type Severity Reaction Status Date / Time No Known Allergies Allergy Verified 02/11/18 23:07 Home Medications: Home Medication List Medication Instructions Recorded Confirmed Last Taken Type Apixaban [Eliquis] 5 mg PO BID #60 tab 01/30/18 09/25/18 02/11/18 Rx Pregabalin [Lyrica] 75 mg PO BID 09/25/18 09/25/18 Unknown History Furosemide [Lasix] 40 mg PO DAILY 30 Days #30 tab 09/28/18 Unknown Rx Potassium Chloride E.r. [Klor-Con] 10 meq PO DAILY 30 Days #30 tab 09/28/18 Unknown Rx Carvedilol [Coreg] 12.5 mg PO BID 11/09/18 11/09/18 Unknown History Colchicine 0.6 mg PO DAILY 11/09/18 11/09/18 Unknown History Hydralazine [Apresoline] 1 tab PO TID 11/09/18 11/09/18 Unknown History LISINOpril [Prinivil] 5 mg PO DAILY 11/09/18 11/09/18 Unknown History Metolazone 5 mg PO Q3DAYS 11/09/18 11/09/18 Unknown History - History of Present Illness-ABD Nature of Presenting Problems: 67 yobm presents to the ed via ems with c/o abdominal pain. pt poor historian d/t CVA hx and dementia. ex- is at bedside and sts took pt to [facility] ed on Monday for ankle edema and pt was given Lasix and dc. ex- sts pt has been declined since going back home. pt c/o nausea, diarrhea, sob, cough, BLE edema, decreased PO. pt was seen at [facility] on 11/06 and medication changes were made and pt told to become established with Dr. Hewitt. pt has low o2 @ 85% on 2LPM, tachycardia 127 and BP 162/110. Abdominal Pain Onset Location: reports: generalized abdomen Quality of Pain: reports: cramping Severity in ED: reports: moderate Onset/Duration: reports: 4 days ago Timing: reports: still present, getting worse Activities at Onset: reports: light activity Exposure to sick contacts?: No Modifying Factors: improves with: nothing. worse with: movement Associated Symptoms: reports: cough, diarrhea, loss of appetite, nausea, shortness of breath. denies: arm pain, back/neck pain, chest pain, diaphoresis, dizziness, fever/chills, headaches, vomiting Last BM: this morning Dark Stools Present?: reports: none noticed Rectal Bleeding: reports: none # of Diarrhea Episodes: 2 Rectal Pain: reports: none # of Vomiting Episodes: 0 Emesis Description: reports: none Bruising or Bleeding Gums?: No Similar Symptoms Previously?: No Recently seen or treated by another doctor?: Yes Review of Systems - Adult - REVIEW OF SYSTEMS - ADULT ROS:: ROS per family (exwife) Constitutional: denies: chills, fever Eyes: reports: no symptoms reported Ears, Nose, Mouth & Throat: reports: no symptoms reported Cardiovascular: reports: edema. denies: chest pain, palpitations Respiratory: reports: see HPI, cough, dyspnea on exertion, shortness of breath. denies: wheezing Gastrointestinal: reports: see HPI, abdominal pain, diarrhea, nausea. denies: vomiting Genitourinary: reports: no symptoms reported Musculoskeletal: reports: no symptoms reported Integumentary: reports: no symptoms reported Neurological: reports: tremors. denies: dizziness/vertigo, headache/migraines, loss of balance, numbness, paresthesia, syncope Psychiatric: reports: no symptoms reported Endocrine: reports: no symptoms reported Hematologic/Lymphatic: reports: no symptoms reported Allergic/Immunologic: reports: no symptoms reported All Other Systems: Reviewed and Negative Past History - Adult - PAST MEDICAL HISTORY-ADULT Review of Records: reports: Old Records Reviewed, Nursing Assessment Review, Medications Reviewed, Social history reviewed & non-contributory. Major Childhood Illnesses: reports: denies history Cardiovascular: reports: A-Fib, CHF, HTN, hyperlipidemia, IA, pacemaker Respiratory: reports: denies history Gastrointestinal: reports: GERD, GI bleed Genitourinary: reports: kidney disease Musculoskeletal: reports: denies history Hand Dominance: Right Handed Neurological: reports: CVA, stroke deficits (trouble with speech), dementia Psychiatric: reports: denies history Endocrine/Immune: reports: Diabetes, thyroid disorder Diabetes Type: Type 2 Other Conditions: reports: denies history - PRIOR SURGERIES/PROCEDURES Surgical/Procedure History: reports: appendectomy, pacemaker, orthopedic (extremity) (recently began staying w/ex on 11/05), other (thyroidectomy) - IMMUNIZATION STATUS Childhood Immunizations: See Nurse Assessment Flu Vaccine: See Nurse Assessment - FAMILY HISTORY Family History: reviewed, not pertinent - SOCIAL HISTORY Smoking: quit greater than 1 year Substance Use: denies Living Situation: alone Physical Exam-General - PHYSICAL EXAM-ADULT Initial Vital Signs Reviewed: Yes - CONSTITUTIONAL General Appearance: alert, moderate distress, obese - EYES Eyes: PERRL/EOMI, pale conjunctivae - HEAD, EARS, NOSE, MOUTH & THROAT HENMT: negative: moist mucous membranes (dry oral) - NECK Neck: non-tender, normal inspection - RESPIRATORY Respiratory: lungs clear, normal breath sounds, respiratory distress (increased work of breathing), increased rate. negative: accessory muscle use, crackles, rales, rhonchi, stridor, wheezing - CARDIOVASCULAR Cardiovascular: normal peripheral pulses, tachycardia (128). negative: no edema (+1 BLE edema) - GASTROINTESTINAL (ABDOMEN) Abdominal Exam: soft, abnormal bowel sounds, distended, guarding, tenderness. negative: McBurney's point tenderness, Rovsing's sign - LYMPHATIC Lymphatic: no adenopathy - MUSCULOSKELETAL Back Exam: normal inspection, no CVA tenderness, no vertebral tenderness Extremity: normal range of motion, normal inspection - SKIN Integumentary: normal color, normal turgor, warm/dry - NEUROLOGIC Neurologic: grossly normal (pt is at baseline per ex-) - PSYCHIATRIC Psych/Mental Status: anxious Progress - PLAN OF CARE/RESULTS Progress/Plan/Lab Results: Lab results, imaging results, and plan of care discussed with patient and ex- who verbalize understanding. Plan of care discussed and formulated with Dr. Beasley, who also saw the patient. Result Diagrams: 11/09/18 09:09 11/09/18 09:09 - REASSESSMENT Reassessment #1 Time Reassessed: :25 Status: unchanged Reassessment #2 Time Reassessed: 10:09 Status: improving - EKG 1 Time of EKG reading by physician:: 09:03 EKG Read and Signed by:: Ghazal Beasley EKG Interpretation (*Must complete 3 of following elements*): Abnormal Rate: 127 Rhythm: accelerated junctional rhythm w/ occ pvc Drummonds: left (deviation) QRS: RBB (incomplete) VA Interval: normal ST Wave: normal Comments: possible anterior infarct, age ndetermined - XRAY 1 XRAY Study: Chest Impression: See EMR Report (EXAM: CHEST-2 VIEWS HISTORY: SOB TECHNIQUE: Chest two views COMPARISON: 10/26/2018 FINDINGS: The lungs are well expanded. The heart is enlarged. There are infiltrates in the upper lungs. No pleural effusions. There is a left-sided pacemaker. IMPRESSION: Cardiomegaly with upper lung infiltrates Electronically signed by Ramirez Matt 11/09/2018 10:03 AM 11/09/18 1003 Interpreting Physician: Ramirez Matt MD Dictated Date/Time: 11/09/18 1002 cc: Ramona Moctezuma; João Connelly MD) - CT/MRI 1 CT Study: Abdomen, Pelvis Impression: See EMR Report (EXAM: CT ABDOMEN/PELVIS W/O CONTRAST 11/09/2018 HISTORY: Abdominal pain TECHNIQUE: This exam was performed using automated exposure control, adjustment of mA or kV according to patient size, and/or use of iterative reconstruction technique. COMMENT: There is cardiomegaly and bilateral small pleural effusions more so on the right than the left. There are some apparent small stones layering dependently in the gallbladder. There is beam hardening artifact and some motion artifact but there is no apparent ne phrolithiasis or hydronephrosis. There are scattered diverticula present in the left colon. There is no evidence of acute diverticulitis. The small bowel is not distended. The aorta is not distended. There is no evidence of appendicitis. There is no free fluid. The urinary bladder is not distended. There is no evidence of ureterolithiasis. There is spondylosis present in the lumbar spine. No evidence of acute bony disease is present. IMPRESSION: Bilateral small pleural effusions. Cholelithiasis. Diverticulosis coli. Electronically signed by Hector Faith 11/09/2018 10:10 AM 11/09/18 1010 Interpreting Physician: Hector Faith MD Dictated Date/Time: 11/09/18 1004 cc: Ramona Moctezuma; João Connelly MD) - CONSULTS/PCP/HOSPITALIST Notification #1 *Consult/PCP/Hospitalist*: dr hewitt Time Discussed: 11:02 Reason/Comments: admit to hospitalist and dr hewitt will consult #2 Consult: TAMIKA Sherman (hospitalist) Time Discussed: 11:10 Reason/Comments: admit for SIRS criteria and pneumonia Consult Disposition: Admit Departure - Departure Date of Disposition Decision: 11/09/18 Time of Disposition Decision: 11:10 DIAGNOSIS: Systemic inflammatory response syndrome (SIRS) associated with organ dysfunction, Pleural effusion Pneumonia Qualifiers: Pneumonia type: due to unspecified organism Laterality: bilateral Lung location: upper lobe of lung Qualified Code(s): J18.1 - Lobar pneumonia, unspecified organism Disposition: ADMITTED INPATIENT 09 Certified Medical Emergency: Emergent Condition: Fair Referrals and Follow-Ups: João Connelly MD [Primary Care Provider] - - Critical Care Note This patient required my direct & personal management of CC.: Yes Total Time (mins): 42 Critical Care Statement: This patient required my direct personal management to treat or rule out processes, the absence of which, could potentiallly result in sudden, clinically significant life or limb threatening deterioration. Attestation - Physician/ KYLE Attestation Patient care was provided by Advanced Practice Provider:: Yes Advanced Practice Provider:: Ramona Moctezuma Advanced Practice Provider documentation review:: The Mid-level provider documentation, treatment plan and medical decision making was reviewed by the ph ysician who agrees with all treatment and medical decision making by the MLP. The physician spent face to face time with patient:: Yes Advanced Practice Provider documentation review:: Supervising physician onsite and consulted in the evaluation and care of this patient. The physician did have a face to face encounter with the patient. This chart was documented by the indicated scribe, (Debra Garcia Scribe) and accurately reflects the services I performed and decisions made by me, Ramona Moctezuma CRNP, as attested by the provider's signature.
[2018-11-09 09:58] LABS: BILIRUBIN URINE SMALL (NEGATIVE); BLOOD URINE SMALL (NEGATIVE); COLOR ORANGE; GLUCOSE URINE TRACE mg/dL (NEGATIVE); KETONE URINE 20 mg/dL (NEGATIVE); LEUKOCYTES URINE NEGATIVE (NEGATIVE); NITRITE URINE NEGATIVE (NEGATIVE); PROTEIN URINE 300 mg/dL (NEGATIVE); SP GRAVITY URINE 1.023; TURBIDITY URINE CLEAR (CLEAR); UROBILINOGEN URINE 3 mg/dL (NORMAL)
[2018-11-09 09:59] LABS: UR EPITHELIAL CELLS <10 /HPF (<10); URINE BACTERIA NEGATIVE /HPF; URINE RBC <10 /HPF (<10); URINE WBC <10 /HPF (<10)
[2018-11-09 10:00] LABS: INR 1.26; PROTIME 16.8 Seconds (11.0-16.0)
[2018-11-09 10:01] LABS: PTT 32.4 Seconds (22.3-41.8)
--- NOTE | 2018-11-09 10:05 | Diag Imaging Result Doc PS360 ---
EXAM: CHEST-2 VIEWS HISTORY: SOB TECHNIQUE: Chest two views COMPARISON: 10/26/2018 FINDINGS: The lungs are well expanded. The heart is enlarged. There are infiltrates in the upper lungs. No pleural effusions. There is a left-sided pacemaker. IMPRESSION: Cardiomegaly with upper lung infiltrates Electronically signed by Ramirez Matt 11/09/2018 10:03 AM
--- NOTE | 2018-11-09 10:12 | Diag Imaging Result Doc PS360 ---
EXAM: CT ABDOMEN/PELVIS W/O CONTRAST 11/09/2018 HISTORY: Abdominal pain TECHNIQUE: This exam was performed using automated exposure control, adjustment of mA or kV according to patient size, and/or use of iterative reconstruction technique. COMMENT: There is cardiomegaly and bilateral small pleural effusions more so on the right than the left. There are some apparent small stones layering dependently in the gallbladder. There is beam hardening artifact and some motion artifact but there is no apparent nephrolithiasis or hydronephrosis. There are scattered diverticula present in the left colon. There is no evidence of acute diverticulitis. The small bowel is not distended. The aorta is not distended. There is no evidence of appendicitis. There is no free fluid. The urinary bladder is not distended. There is no evidence of ureterolithiasis. There is spondylosis present in the lumbar spine. No evidence of acute bony disease is present. IMPRESSION: Bilateral small pleural effusions. Cholelithiasis. Diverticulosis coli. Electronically signed by Hector Faith 11/09/2018 10:10 AM
[2018-11-09] MEDS ORDERED: VANCOMYCIN 1 GM/NS 1 GM/250 ML IVPB IV ONE (10:13)
[2018-11-09] MEDS ORDERED: ZOSYN 2.25 GM in NS 50 ML IV ONE (10:13)
[2018-11-09 10:28] LABS: ALB/GLOB RATIO 1.9; ALBUMIN 4.6 g/dL (3.5-5.0); CREATININE 1.7 mg/dL (0.7-1.2); POTASSIUM 4.1 mmol/L (3.5-5.1); TOTAL BILIRUBIN 3.72 mg/dL (0.20-1.00)
[2018-11-09 10:50] LABS: MAGNESIUM 1.8 mg/dL (1.5-2.7); PHOSPHORUS 3.1 mg/dL (2.7-4.5)
[2018-11-09] MEDS ORDERED: ATIVAN IV ONE ×3 (10:50→20:12)
[2018-11-09 11:09] LABS: CK INDEX 1.7 (0.0-2.5); CK-MB 4.07 ng/mL (0.0-5.0)
[2018-11-09] MEDS ORDERED: NS 500 ML IV ONE ×2 (11:25→22:22)
[2018-11-09] MEDS: COREG PO SCH ×2 (11:30→23:26)
[2018-11-09] MEDS ORDERED: LOPRESSOR IV ONE (11:50)
[2018-11-09] MEDS ORDERED: LASIX IV ONE ×2 (11:50→20:12)
[2018-11-09] MEDS ORDERED: MORPHINE IV ONE ×3 (12:05→20:49)
--- NOTE | 2018-11-09 12:08 | EKG Report ---
Test Performed on : 11/09/2018 09:03:28 AM Test Reason : chf/tachy/sob/sepsis Blood Pressure : / mmHG Vent. Rate : 127 BPM Atrial Rate : 068 BPM P-R Int : 000 ms QRS Dur : 114 ms QT Int : 356 ms P-R-T Axes : 000 -73 053 degrees QTc Int : 517 ms Accelerated Junctional rhythm. with occasional premature ventricular complexes. Left axis deviation Incomplete right bundle branch block Possible Anterior infarct , age undetermined Abnormal ECG When compared with ECG of 26-SEP-2018 11:48, Junctional rhythm. has replaced Wide QRS rhythm. Unconfirmed Result
[2018-11-09] MEDS ORDERED: ZOFRAN IV PRN (12:09)
[2018-11-09] MEDS ORDERED: TYLENOL PO PRN (12:09)
[2018-11-09] MEDS: APRESOLINE PO SCH ×2 (13:00→17:00)
--- NOTE | 2018-11-09 13:15 | Diag Imaging Result Doc PS360 ---
EXAM: US ABDOMEN-COMPLETE 11/09/2018 HISTORY: abd pain; elevated bili TECHNIQUE: Abdominal ultrasound COMMENT: The visualized portions of the pancreas are unremarkable. The liver is normal in appearance. There is no evidence of biliary dilatation the common bile duct measuring less than 7 mm. The gallbladder contains small stones dependently but is nontender. There is no evidence of hydronephrosis or mass in the kidneys. The spleen is not enlarged. The study was somewhat suboptimal due to the patient's inability to cooperate with the procedure. The visualized portions of the aorta and inferior vena cava are unremarkable. The portal vein could not be examined due to the patient's clinical condition. IMPRESSION: No evidence of acute disease. Electronically signed by Hector Faith 11/09/2018 1:13 PM
[2018-11-09] MEDS ORDERED: HALDOL IV ONE (14:33)
[2018-11-09] MEDS ORDERED: HALDOL ONE (14:37)
[2018-11-09 15:34] LABS: ALLEN TEST YES; BE -2.6 mmoll (-3.0-3.0); BLOOD TYPE ARTERIAL; HCO3-(ACT) 22.8 mmoll (20.0-26.0); METHB 0.9 % (0.0-1.5); O2(CT) 17.6 mL/dL (15.0-23.0); O2HB 93.3 % (95.0-99.0); PCO2(98.6) 29 mmHg (35-45); PO2(98.6) 72 mmHg (60-100); SAMPLE BLOOD; SAO2 96.9 % (95.0-100.0); THB 13.4 g/dL (11.5-17.4); pH(98.6) 7.45 (7.35-7.45)
[2018-11-09 15:36] LABS: MODALITY BI PAP
[2018-11-09] MEDS ORDERED: LASIX IV STA (16:02)
--- NOTE | 2018-11-09 16:19 | HISTORY AND PHYSICAL ---
PRIMARY CARE PROVIDER: Dr. João Connelly GARNETT MACHINE OPERATOR: Dr. Beach CHIEF COMPLAINT: Shortness of breath and abdominal pain. HISTORY OF PRESENT ILLNESS: Mr. Jaime Levi is a 67-year-old male with a medical history of dilated nonischemic cardiomyopathy and systolic congestive heart failure with an ejection fraction of 15% to 20% and that is of September of 2018 on his last admission, diastolic dysfunction, pulmonary hypertension, CKD stage 3, and significant dementia who now presents with increasing shortness of breath, lower extremity swelling, left lower quadrant abdominal discomfort, and nausea without appetite. He is currently with his ex- at the bedside and all information was essentially gathered through her as he was very disoriented but she states that since Monday (today is Monday) he has been at her house. She took him to the [facility] where he got Lasix IV and was sent home. He was there with shortness of breath and lower extremity swelling as well. He has had a decreased appetite with essentially no food since Monday but did drink about a fourth cup of chicken broth yesterday. He has had nausea. He has not even had any of his home medications since Monday. So, he has been without his Lasix, his Coreg, and his congestive heart failure medications at least since Monday and maybe longer. He has been having daily bowel movements. He has not had any sleep. His dementia has worsened. There is a cough but no phlegm. Denies fever and he is quite agitated at the bedside. Laboratory reveals that he has some congestive heart failure going on. He also has imaging that shows bilateral upper lobe pneumonia and sepsis with a lactate of 3.3 and 3.4. He is going to be difficult to treat given his congestive heart failure that is acute along with having sepsis and we will have to put him in [facility] to monitor more closely. We will also consult Cardiology. It is also noted that the patient is not on home O2 but he presented with upper 80s O2 saturations on room air and his O2 saturations went up to about 94% on 4 L nasal cannula. PAST MEDICAL HISTORY: 1. CKD stage 3B. 2. Dilated nonischemic cardiomyopathy. 3. Systolic congestive heart failure. Ejection fraction in 2018 was 25% to 34%. Ejection fraction in September of 2018 exactly a year later had dropped down to 15% to 20%. 4. Diastolic dysfunction. 5. Pulmonary artery hypertension. There is no reported pulmonary systolic pressure but on the older echocardiogram it was 48 mmHg to 53 mmHg. 6. Iron deficiency anemia. 7. Paroxysmal atrial fibrillation. 8. Hypothyroidism. 9. Diabetes mellitus type 2. 10.Dementia. 11.History of stroke. PAST SURGICAL HISTORY: 1. Biventricular AICD. 2. Thyroidectomy. 3. Carpal tunnel repair. 4. Hemorrhoidectomy. SOCIAL HISTORY: He is . His ex- is at the bedside. He lives at home. He has a son. Denies tobacco, alcohol, or illicit drug use. FAMILY HISTORY: Denies. ALLERGIES: No known drug allergies. HOME MEDICATIONS: 1. Metolazone 5 mg p.o. every 3 days. 2. Apresoline 25 mg p.o. t.i.d. 3. Colchicine 0.6 mg p.o. daily. 4. Coreg 12.5 mg p.o. twice daily. 6. Lasix 80 mg p.o. daily. 7. Lyrica 75 mg p.o. twice daily. 8. Lisinopril 5 mg p.o. daily. 9. Eliquis 5 mg p.o. twice daily. 10.Potassium chloride 10 mEq p.o. daily. REVIEW OF SYSTEMS: Unable to obtain. The patient was not very verbally appropriate but review of systems were mentioned in the HPI so all were negative except for those. PHYSICAL EXAMINATION: VITAL SIGNS: Temperature is 97.7, heart rate 103, respiratory rate 42, blood pressure 156/95, O2 saturation 92% on 4 L. GENERAL: Mr. Jaime Levi is a 67-year-old male. He is quite agitated at the moment, moaning and groaning, and not really verbally responding to questions. It is just difficult to understand his words. HEENT: Atraumatic, normocephalic. Pupils are equal and reactive. Mucous membranes are moist. NECK: Trachea is midline. CARDIOVASCULAR: Tachycardic rate and rhythm. No rubs or gallops. He has 1+ pitting lower extremity edema. Dorsalis pedal pulses are +2 and radial pulses are +2. It is difficult to assess his JVD given his body habitus. His neck is very round but negative for carotid bruits. GI: Round, distended, and nonfirm. It is soft. Hypoactive bowel sounds times 4. Tender in the left lower quadrant. EXTREMITIES: Moves all extremities equally and spontaneously but does not follow commands. NEURO: Oriented to name only. Agitated and confused. SKIN: Warm, dry, and intact. LABORATORY DATA: White blood cells 8,000, hemoglobin 14, hematocrit 43, and platelet count 143. INR is 1.26 and PTT 32.4. Sodium is 144, potassium 4.1, BUN 17, creatinine 1.7, glucose 223, calcium 10, phosphorous 3.1, magnesium 1.8, bilirubin 3.72, AST 14, and ALT 14. CK is 244 and MB 4.07. Troponin is 0.077. ProBNP is 12,736. Albumin is 4.6, amylase 43, and lipase 15. Serum lactate was 3.3 and repeat was 3.4. Urinalysis: 300 protein, 20 ketones, small blood, small bilirubin, and 3 urobilinogen. IMAGING: Abdominopelvic CT: Bilateral small pleural effusions, cholelithiasis, and diverticulosis coli. Chest x-ray: Cardiomegaly with upper lung infiltrates. EKG says accelerated junctional rhythm but it is tachycardic at 127. QTc is 517. It actually looks like it might be fibrillation. Abdominal ultrasound: No acute disease. ASSESSMENT AND PLAN: 1. Acute on chronic systolic and diastolic congestive heart failure with dilated nonischemic cardiomyopathy with ejection fraction of 15% to 20%. He has not taken any of his medications at least since Monday and probably longer. So, he has not had his Lasix or Coreg. Monday apparently he did go to [facility] where he got IV Lasix and was sent home but he is having shortness of breath with O2 requirement. He is a little hypoxic. He does not wear home O2. He seems to be more confused than his usual dementia. 2. Nausea with abdominal pain in the left lower quadrant. She states that he has daily bowel movements that are brown but he has been having nausea and hardly any appetite. The abdominopelvic CT showed cholelithiasis and diverticulosis coli but that is about it. The abdominal ultrasound was negative. He does have some hyperbilirubinemia with this so we will have to monitor that daily. It could be heart failure related. 3. Bilateral upper lobe pneumonia or infiltrates with signs and symptoms of sepsis. He has an elevated heart rate and elevated lactate. Given his heart failure I will only give him a very small amount of fluids to try and flush the lactate out but there is not going to be any maintenance fluids ordered for now. Broad-spectrum antibiotics are started. 4. Paroxysmal atrial fibrillation. It almost appears that he could be in atrial fibrillation right now. If he is it is atrial fibrillation with a rapid ventricular response. May have to give some IV Cardizem and get that started. He did get 5 mg of metoprolol IV. 5. Hypothyroidism. We will continue Synthroid. 6. Diabetes mellitus type 2. We will do pattern blood glucoses and sliding scale insulin. 7. Dementia with metabolic encephalopathy at this time. 8. Deep vein thrombosis prophylaxis with sequential compression devices. Dictated by TAMIKA Solo for Bull Kline MD Addendum: Patient seen and examined by myself. Agree with TAMIKA note. It reflects my assessment and plan. Patient is being admitted to hospital for difficult in breathing. Patient is poor historian and has residual slurred speech from previous stroke. Ex at bedside provide information about this patient. Patient also has pneumonia with signs of sepsis. Will start broad spectrum IV antibiotics but will be cautious regarding fluids considering his low EF. Will send him to ICU for better monitoring. cc: TAMIKA Solo MD [facility]
[2018-11-09] MEDS: HUMULIN R SUBQ SCH ×2 (16:27→22:42)
[2018-11-09] MEDS: MORPHINE IV PRN (17:40)
[2018-11-09] MEDS ORDERED: HALDOL IV PRN (17:47)
[2018-11-09] MEDS ORDERED: APRESOLINE IV PRN (17:49)
[2018-11-09] MEDS: ZOSYN 2.25 GM in NS 50 ML IV SCH (20:00)
[2018-11-09] MEDS ORDERED: DUONEB (A & A) INH ONE (20:20)
[2018-11-09] MEDS ORDERED: HEPARIN SUBQ SCH (21:00)
--- NOTE | 2018-11-09 21:18 | PULMONOLOGY CONSULTATION ---
DATE: 11/09/2018 REASON FOR CONSULTATION: Respiratory failure. HISTORY OF PRESENT ILLNESS: Mr. Levi is a 67-year-old, black male, with severe cardiomyopathy with an ejection fraction of 15 to 20 percent, mitral regurgitation, moderate pulmonary hypertension, with component of dementia, who presented to the emergency room with report of abdominal pain. He is a very poor historian. By report, he has had increased ankle edema and nausea and was informed he should see Dr. Hewitt. In the emergency room, he had a chest x-ray, which reveals cardiomegaly with vascular prominence. He underwent a CT scan of the abdomen and pelvis, which reveals small effusions along with cholelithiasis but no evidence of acute disease. He may have an infiltrate in the right upper lobe. An ultrasound of the abdomen was also performed which revealed no evidence of acute disease. He continues to have significant increased work of breathing. PAST MEDICAL HISTORY/PROBLEM LIST: 1. Nonischemic cardiomyopathy with an ejection fraction of 15 to 20 percent. 2. Moderate pulmonary hypertension. 3. Diabetes mellitus. 4. Dementia. 5. History of strokes. 6. Status post biventricular pacemaker placement. 7. AICD. 8. Status post thyroidectomy. 9. Status post hemorrhoidectomy. SOCIAL HISTORY: Patient lives at home and is cared for by his son. The patient is . No alcohol or tobacco use is listed. REVIEW OF SYSTEMS: Cannot be obtained. PHYSICAL EXAMINATION: General: Reveals an elderly white male who has periods of distress with diaphoresis by periods of being more calm. He does have a pattern of respiration consistent with Adrian-Vinson respiration. Vital Signs: Blood pressure 162/92, heart rate 112, respiratory rate 43, oxygen saturation 96. He is very agitated. HEENT: The patient is mildly diaphoretic. Pupils are equal. Oropharynx appears dry. Neck: Supple with JVD. Cardiac: Normal S1. Distant heart sounds, making it difficult to hear gallops. Abdomen: Obese, with mild increased tympany. Difficult to identify guarding. Extremities: Cool to the touch. LABORATORIES: From this morning, white blood count 8.75, hemoglobin 14.2, platelet count 143,000. Arterial blood gas at 3:20 this afternoon, pH 7.45, pCO2 of 29, pO2 of 72 with a lactate of 2.3. Chemistries: Sodium 137, potassium 3.5, chloride 94, bicarbonate 27, BUN 62, creatinine 2.5. IMPRESSION: A 67-year-old, very difficult historian with acute respiratory distress and hypoxemic respiratory failure. He has mild lactic acidosis. He has periods of Adrian-Vinson respiration with diaphoresis. He also has cool extremities. Workup for infectious causes of his presentation have been negative. Ultrasound of the abdomen and CT scan of the abdomen and pelvis were negative. He may have an upper lobe infiltrate, but this appears more complicated than a simple pneumonia. I suspect that he is having significant pump failure with decreased forward flow. His dementia and agitation is further complicating a weak heart. RECOMMENDATIONS: 1. Try to expedite an ICU bed placement. 2. Attempt sedation. 3. Intubation anticipated on arrival to ICU 3. Discussed with the family(sister). 4. Prognosis appears very poor. Time Spent Critical Care (including intubation time, see separate dictation): 90+ minutes cc: Jaime Torres MD [facility]
[2018-11-09] MEDS: ZYVOX 600 MG/D5W 600 MG/300 ML IVPB IV SCH (21:22)
[2018-11-09] MEDS ORDERED: DIPRIVAN 1% 1,000 MG/100 ML BOTTLE ONE (21:59)
[2018-11-09] MEDS: DIPRIVAN 1% 1,000 MG/100 ML BOTTLE IV SCH (22:00)
[2018-11-09] MEDS ORDERED: NS 1,000 ML ONE (22:02)
--- NOTE | 2018-11-09 22:08 | Diag Imaging Result Doc PS360 ---
CT HEAD W/O CONTRAST - 11/09/2018 INDICATION: ams COMPARISON: None FINDINGS: There is a large old left middle cerebral artery territory infarction. No intracranial mass or hemorrhage. The skull is intact. The sinuses, mastoids, and middle ears are clear. IMPRESSION: Large old left middle cerebral artery territory stroke. Correlate clinically. This exam was performed using automated exposure control, adjustment of mA or kV according to patient size, and/or use of iterative reconstruction technique Electronically signed by David Grey 11/09/2018 10:06 PM
[2018-11-09] MEDS: LEVOPHED 8 MG in D5 1/2 NS 250 ML IV SCH (22:48)
[2018-11-09] MEDS: DUONEB (A & A) INH SCH (23:15)
[2018-11-09] MEDS: ELIQUIS PO SCH (23:26)
[2018-11-09] MEDS: NS 1,000 ML IV SCH (23:29)
[2018-11-10] MEDS: LASIX IV SCH ×2 (00:35→08:33)
[2018-11-10] MEDS: DIPRIVAN 1% 1,000 MG/100 ML BOTTLE IV SCH ×6 (00:36→23:42)
[2018-11-10] MEDS: ZOSYN 2.25 GM in NS 50 ML IV SCH ×3 (01:54→17:25)
[2018-11-10] MEDS: DUONEB (A & A) INH SCH ×6 (03:11→23:03)
[2018-11-10] MEDS ORDERED: NS 500 ML IV ONE (03:55)
[2018-11-10 04:59] LABS: ALLEN TEST YES; BE -2.6 mmoll (-3.0-3.0); BLOOD TYPE ARTERIAL; HCO3-(ACT) 22.9 mmoll (20.0-26.0); METHB 1.3 % (0.0-1.5); O2(CT) 18.7 mL/dL (15.0-23.0); O2HB 96.4 % (95.0-99.0); PCO2(98.6) 29 mmHg (35-45); PO2(98.6) 148 mmHg (60-100); SAMPLE BLOOD; SAO2 99.6 % (95.0-100.0); SRATE 16 BPM; THB 13.6 g/dL (11.5-17.4); TVOL 500 mL; pH(98.6) 7.45 (7.35-7.45)
[2018-11-10] MEDS: HUMULIN R SUBQ SCH ×4 (06:10→21:41)
[2018-11-10 06:16] LABS: MODALITY VENTILATOR
[2018-11-10 06:30] LABS: BASO# 0.04 X1000 (0.0-0.2); BASO% 0.4 % (0.0-0.8); EOS# 0.02 X1000 (0.0-0.7); EOS% 0.2 % (0.0-10.0); HEMATOCRIT 38.7 % (42.0-52.0); HEMOGLOBIN 12.7 g/dL (14.0-18.0); IMM GRAN# 0.06 X1000 (0.0-0.04); IMM GRAN% 0.5 % (0.0-0.5); LYMPH# 2.38 X1000 (1.2-3.4); LYMPH% 21.3 % (20.5-51.1); MCH 29.9 PG (27-31); MCHC 32.8 g/dL (33-37); MCV 91.1 FL (81-99); MONO# 0.95 X1000 (0.11-0.59); MONO% 8.5 % (1.7-9.3); MPV 11.7 FL (7.4-10.4); NEUT# 7.72 X1000 (1.4-6.5); NEUT% 69.1 % (42.2-75.2); PLT 143 X1000 (130-400); RBC 4.25 XMIL (4.7-6.1); RDW 15.3 % (11.5-14.5); WBC 11.17 X1000 (4.8-10.8)
[2018-11-10] MEDS: NS 1,000 ML IV SCH ×2 (06:54→17:29)
[2018-11-10 06:56] LABS: ALB/GLOB RATIO 1.4; ALBUMIN 3.4 g/dL (3.5-5.0); CALCIUM 8.7 mg/dL (8.8-10.2); POTASSIUM 3.9 mmol/L (3.5-5.1); TOTAL BILIRUBIN 2.92 mg/dL (0.20-1.00); TOTAL PROTEIN 5.9 g/dL (6.3-8.3)
[2018-11-10 07:02] LABS: MAGNESIUM 1.8 mg/dL (1.5-2.7); PHOSPHORUS 3.1 mg/dL (2.7-4.5)
--- NOTE | 2018-11-10 07:37 | Diag Imaging Result Doc PS360 ---
EXAM: CHEST-PORTABLE - 11/09/2018 HISTORY: intubation TECHNIQUE: Portable chest COMPARISON: Prior exam 11/09/2018 FINDINGS: There has been interval insertion of an endotracheal tube, with its tip located approximately 6 cm above the luisa. There is stable cardiomegaly. There is transvenous cardiac pacemaker again seen, which partially overlies the left upper lobe. There is right upper lobe infiltrate which appears mildly more dense compared to prior. There is no substantial pleural effusion or pneumothorax identified. IMPRESSION: Tip of endotracheal tube in satisfactory position approximately 6 cm above the luisa. Right upper lobe infiltrate suspicious for pneumonia. Electronically signed by Willis Ibanez 11/10/2018 7:35 AM
[2018-11-10] MEDS: ZYVOX 600 MG/D5W 600 MG/300 ML IVPB IV SCH ×2 (08:33→21:41)
[2018-11-10] MEDS: LEVOPHED 8 MG in D5 1/2 NS 250 ML IV SCH (08:33)
--- NOTE | 2018-11-10 08:35 | OPERATIVE NOTE ---
PROCEDURE DATE: 11/10/2018 PROCEDURE PERFORMED: Intubation. CLINICAL INDICATIONS: Patient identified as he was brought to ICU. He was having periods of apnea. He was emergently intubated. The patient received propofol for sedation. The Gary scope was utilized to suction the posterior pharynx and to visualize the vocal cords. #8 endotracheal tube was advanced through the cords without difficulty. The tube was secured in place at 23 cm at the lip. There was good CO2 return. cc: Jaime Torres MD [facility]
--- NOTE | 2018-11-10 08:36 | Diag Imaging Result Doc PS360 ---
EXAM: CHEST-PORTABLE - 11/10/2018 HISTORY: respiratory failure TECHNIQUE: Portable chest COMPARISON: 11/09/2018 FINDINGS: The endotracheal tube remains in place. There is stable cardiomegaly. There is transvenous cardiac pacemaker again seen, which partially overlies the left upper lobe. There is right upper lobe infiltrate which appears of decreased mildly. There has been apparent development of mild atelectasis and/or pleural fluid at the left base. There is no pneumothorax identified. IMPRESSION: Apparent mild decrease in right lobe infiltrate. Mild atelectasis and/or pleural fluid at left base. Electronically signed by Willis Ibanez 11/10/2018 8:34 AM
[2018-11-10] MEDS: APRESOLINE PO SCH (08:38)
[2018-11-10] MEDS: ELIQUIS PO SCH ×2 (08:39→21:42)
[2018-11-10] MEDS: COREG PO SCH (08:39)
[2018-11-10] MEDS ORDERED: PRINIVIL PO SCH (09:00)
[2018-11-10 09:19] LABS: FREE T4 0.93 ng/dL (0.93-1.70); TSH 4.31 uIUmL (0.27-4.20)
--- NOTE | 2018-11-10 09:37 | PROGRESS NOTE ---
DATE: 11/10/2018 SUBJECTIVE: Patient is sedated and intubated. OBJECTIVE: Vital Signs: Temperature 100.9 degrees, heart rate 121 respiratory rate 14, blood pressure 85/67, O2 saturation 100% on mechanical ventilator. General: This is a chronically ill appearing, 67-year-old male, lying in bed, in no acute distress. HEENT: Head is normocephalic and atraumatic. The patient is intubated. Protruding tongue. Neck: No JVD noted. No carotid bruits. No lymphadenopathy. No thyromegaly. Cardiovascular: S1, S2 heard. No murmurs, gallops, or rubs. Regular rate and rhythm. Respiratory: Minimal coarse breath sounds noted in both pulmonary bases. Patient is not using any accessory muscles or having work of breathing. Abdomen: Soft. A little bit distended, but apparently nontender to palpation. Bowel sounds present. No organomegaly. Extremities: 1+ pitting edema in both lower extremities. Neurological: The patient is sedated and intubated. LABORATORY DATA: White cell count 11.17, hemoglobin 12.7, hematocrit 38.7, platelets 143,000. ABGs show pH 7.45 with pCO2 29, pO2 148. That was on ventilator at FiO2 of 60%. BMP shows sodium 147, potassium 3.9, creatinine 3.0, BUN 30, glucose 167, total bilirubin 2.92. ASSESSMENT AND PLAN: 1. Acute respiratory failure, on ventilator. 2. Nonischemic cardiomyopathy, with ejection fraction of 15 to 20 percent. 3. Moderate pulmonary hypertension. 4. Diabetes mellitus type 2. 5. History of strokes. 6. Dementia. 7. Status post biventricular pacemaker. 8. Paroxysmal atrial fibrillation. PLAN: This patient was admitted to the hospital because of difficulty in breathing. Actually, this patient has been seen in the hospital recently and he was sent home with Lasix. We found out that he had a pneumonia, so he was started on broad-spectrum antibiotics with Zyvox and Zosyn. Because his respiratory status continued to get worse, Dr. Torres from Pulmonary decided to intubate this patient. The patient is requiring 1 vasopressor to keep blood pressure up. 1. At this time, we will continue with the same antibiotic management. 2. We are going to continue with Lasix 40 mg IV q.12 hours. 3. We will continue to check CBC and BMP daily. 4. For diabetes, we will continue with the sliding scale insulin and Accu-Chek before meals and also at bedtime. The x-ray from today showed apparent mild decrease in the right lobe infiltrate. The patient is critically ill. We will continue to monitor this patient closely in the intensive care unit. cc: Bull Kline MD
--- NOTE | 2018-11-10 11:38 | CONSULTATION ---
DATE OF CONSULTATION: 11/10/2018 IMPRESSION: 1. Hypoxemic respiratory failure. 2. Severe nonischemic cardiomyopathy, with left ventricular ejection fraction of 15 to 20 percent. Patient also has right-sided heart failure and reduced right ventricular function. 3. Moderate pulmonary hypertension. 4. Obstructive sleep apnea, with noncompliance with CPAP. 5. Acute on chronic renal dysfunction. 6. Diabetes mellitus. 7. Reported dementia. 8. Possible associated pneumonia/sepsis. RECOMMENDATIONS: 1. Repeat limited echocardiography to assess biventricular function, as well as gain insight into volume status. 2. Consider initiation of Primacor to try and improve cardiac performance. 3. Continue efforts to try and diurese. 4. Prognosis: Very concerning. HISTORY: Patient is a 67-year-old male, with history of severe nonischemic cardiomyopathy, pulmonary hypertension, right-sided heart failure, and chronic kidney disease, as well as atrial arrhythmias, admitted yesterday with decreasing appetite and increasing edema. He was found to have evidence of volume overload. Efforts to diurese met with limited response. He suffered hypoxemic respiratory failure yesterday evening and required intubation. Cardiology was consulted yesterday, but on-call commissary representative and primary team deferred consultation till today. The patient is presently sedated and unable to give any history. His family indicates that for the past 5 days or so, he has had very poor appetite as well as some shortness of breath and swelling. He went to the emergency room in [place] 4 or 5 days ago and was given intravenous Lasix and released to home. He has been hospitalized several times over the last 6 months with congestive heart failure, and echocardiography has shown severely depressed left ventricular systolic function with left ventricular ejection fraction of 15 to 20 percent, as well as right ventricular dysfunction. He has had chronic kidney disease which has also appeared to progress. His family indicates that he has a long history of obstructive sleep apnea, but is noncompliant with CPAP. There has been some cough with modest sputum production. There has been no fever noted. PAST MEDICAL HISTORY: 1. Severe dilated nonischemic cardiomyopathy. 2. Atrial arrhythmias. Patient has history of previous ablation for atrial flutter, and has had previous cardioversions. He continues on long-term anticoagulation with Eliquis. 3. Obstructive sleep apnea, with noncompliance with CPAP. 4. Moderate pulmonary hypertension, with evidence of right ventricular dysfunction. 5. Hypertension. 6. Diabetes mellitus. 7. Hypothyroidism. 8. Chronic kidney disease. 9. Reported history of dementia. PAST SURGICAL HISTORY: Includes: 1. Hemorrhoidectomy. 2. Implantation of implantable defibrillator/pacemaker. ALLERGIES: He has no known drug allergies. MEDICATIONS PRIOR TO ADMISSION: As listed. SOCIAL HISTORY: He lives by himself. He has a son who visits very often. He does not smoke. He does not use alcohol. FAMILY HISTORY: Negative for premature coronary disease. REVIEW OF SYSTEMS: Not obtainable given patient on ventilator and sedated. PHYSICAL EXAMINATION: General: Reveals an obese, older -Citizen Of [place] male, sedated on ventilator. Vital Signs: Blood pressure 87/64. Heart rate 110 to 120, with ECG monitor showing narrow complex regular tachycardia. P waves difficult to discern. Oxygen saturation 100%. HEENT: Mucous membranes are moist. Neck: Supple. Jugular venous distention cannot be appreciated. Chest: Auscultation of the chest reveals coarse breath sounds bilaterally. Cardiac: Regular tachycardia without appreciable murmur or gallop. Abdomen: Soft. Bowel sounds audible. Extremities: Demonstrate very mild edema. LABORATORY DATA: Includes a white blood cell count of 11.17, hematocrit 38.7, hemoglobin 12.7, platelet count 143,000. Sodium 147, potassium 3.9, chloride 110, carbon dioxide 17, BUN 30, creatinine 3.0, glucose 167. TSH 4.31. Pro B-natriuretic peptide level initially 12,736, and now greater than 35,000. A 12-lead EKG demonstrates regular narrow complex tachycardia. P waves difficult to discern. Occasional premature ventricular complex demonstrated. Left axis deviation demonstrated. Incomplete right bundle branch block demonstrated. Delayed precordial R-wave progression evident. cc: Josue Beach MD [facility]
[2018-11-10 12:38] LABS: URINE SOURCE CATH
[2018-11-10 12:47] LABS: BILIRUBIN URINE NEGATIVE (NEGATIVE); BLOOD URINE MODERATE (NEGATIVE); COLOR YELLOW; GLUCOSE URINE NEGATIVE (NEGATIVE); KETONE URINE NEGATIVE (NEGATIVE); LEUKOCYTES URINE MODERATE (NEGATIVE); NITRITE URINE NEGATIVE (NEGATIVE); PH URINE 5.5; PROTEIN URINE TRACE mg/dL (NEGATIVE); SP GRAVITY URINE 1.013; TURBIDITY URINE HAZY (CLEAR); UROBILINOGEN URINE NORMAL (NORMAL)
[2018-11-10 12:56] LABS: UR CREAT RANDOM 164.2 mg/dL (14-26); UR PROT RANDOM 37.2 mg/dL
[2018-11-10 12:57] LABS: UR EPITHELIAL CELLS <10 /HPF (<10); URINE BACTERIA NEGATIVE /HPF; URINE CASTS GRANULAR PRESENT; URINE WBC 20-40 /HPF (<10); URINE YEAST NONE SEEN
--- NOTE | 2018-11-10 14:35 | NEPHROLOGY CONSULTATION ---
DATE: 11/10/2018 REASON FOR CONSULTATION: Acute kidney injury overlying CKD and heart failure in the context of presumed sepsis. HISTORY OF PRESENT ILLNESS: Mr. Levi is a 67-year-old man who has known ischemic cardiomyopathy with LVEF in the range of 15 to 20 percent as of September. He was hospitalized in this facility during September and treated for decompensated heart failure. He was discharged on the with a discharge diagnosis of acute on chronic systolic heart failure, also pulmonary hypertension, atrial fibrillation. He returned to the hospital on the with worsening abdominal discomfort and shortness of breath. He was very disoriented through the week and so he was taken to the hospital in [place] where he was treated with IV Lasix and discharged. He has really not eaten or drunk anything all week and his mental status continued to decline so he was brought to the emergency room for evaluation. His initial imaging performed on the found upper lobe infiltrates. He had bilateral small pleural effusions evident on CT. No other acute abdominal findings. He was admitted to the hospital and treated with IV diuretics as well as IV antibiotics. Declining status led to intubation and mechanical ventilation. This followed failure of BiPAP therapy. In this context, his kidney function was abnormal with a creatinine of 1.7 on presentation. His creatinine has ranged between 1.6 and 3.0 over the last 2 years, depending on his status. His urine output has been low and he has been in net positive fluid balance since admission. His care has also been complicated by significant hypotension with systolic blood pressure in the 80s and he has required vasopressor support. He has not received any IV contrast and no overtly nephrotoxic medications. His chest x-ray really does not demonstrate pulmonary edema and he is receiving IV fluids as ordered by Dr. Torres. PAST MEDICAL HISTORY: As above. He also has a history of diabetes, hypertension, dementia, hypothyroidism. SOCIAL HISTORY: He is but cared for by his ex-. No tobacco or alcohol. FAMILY HISTORY: Otherwise noncontributory. REVIEW OF SYSTEMS: Otherwise noncontributory. HOME MEDICATIONS: Reviewed as listed. Current medications include: 1. Acetaminophen. 2. Albuterol. 3. Ipratropium. 4. Apixaban. 5. Haloperidol. 6. Hydralazine. 7. Insulin. 8. Norepinephrine. 9. Morphine. 10. Normal saline. 11. Ondansetron. 12. Propofol. 13. Zosyn. 14. Linezolid. ALLERGIES: None. PHYSICAL EXAMINATION: Vital Signs: Blood pressure 84/62, heart rate 122, respirations 16. Generally: He is an elderly man, sedated on the ventilator. Skin: Moist. HEENT: Pupils are equal. Eyes are half open and conjunctivae are dry. Oropharynx is dry. Neck: Neck veins are not appreciated. Heart: Tachycardic and irregular. Lungs: Have equal breath sounds. A few scattered crackles. Abdomen: Soft, distended. Bowel sounds not appreciated. No organomegaly. Extremities: Have 2+ edema. No clubbing or cyanosis. IMPRESSION AND PLAN: Acute kidney injury overlying chronic kidney disease. His recent acute change in renal function is likely secondary to his poor cardiac output and tachyarrhythmias and vasopressor use. His urine output has been low but acceptable. His volume status is somewhat difficult for me to assess. As such, I will continue his normal saline as ordered. Check urine electrolytes, urine urea, etc. No medication changes are required at this time. He has undergone adequate abdominal imaging and no further testing is required. Thank you for the consult. cc: Usman Hewitt MD
[2018-11-10] MEDS: TYLENOL PR PRN (21:41)
[2018-11-11] MEDS: NS 1,000 ML IV SCH (01:02)
[2018-11-11] MEDS: ZOSYN 2.25 GM in NS 50 ML IV SCH ×3 (01:02→17:07)
[2018-11-11] MEDS: DUONEB (A & A) INH SCH ×6 (03:03→23:01)
[2018-11-11] MEDS: DIPRIVAN 1% 1,000 MG/100 ML BOTTLE IV SCH ×5 (05:04→21:52)
[2018-11-11 05:32] LABS: BASO# 0.02 X1000 (0.0-0.2); BASO% 0.3 % (0.0-0.8); EOS# 0.09 X1000 (0.0-0.7); EOS% 1.4 % (0.0-10.0); HEMATOCRIT 35.7 % (42.0-52.0); HEMOGLOBIN 11.7 g/dL (14.0-18.0); IMM GRAN# 0.02 X1000 (0.0-0.04); IMM GRAN% 0.3 % (0.0-0.5); LYMPH# 1.21 X1000 (1.2-3.4); LYMPH% 18.5 % (20.5-51.1); MCH 30.3 PG (27-31); MCHC 32.8 g/dL (33-37); MCV 92.5 FL (81-99); MONO# 0.51 X1000 (0.11-0.59); MONO% 7.8 % (1.7-9.3); MPV 11.3 FL (7.4-10.4); NEUT# 4.68 X1000 (1.4-6.5); NEUT% 71.7 % (42.2-75.2); PLT 84 X1000 (130-400); RBC 3.86 XMIL (4.7-6.1); RDW 15.4 % (11.5-14.5); WBC 6.53 X1000 (4.8-10.8)
[2018-11-11 05:36] LABS: ALLEN TEST YES; BE -3.7 mmoll (-3.0-3.0); BLOOD TYPE ARTERIAL; METHB 1.2 % (0.0-1.5); O2(CT) 16.2 mL/dL (15.0-23.0); O2HB 94.8 % (95.0-99.0); PCO2(98.6) 34 mmHg (35-45); PO2(98.6) 87 mmHg (60-100); SAMPLE BLOOD; SRATE 14 BPM; THB 12.1 g/dL (11.5-17.4); TVOL 500 mL; pH(98.6) 7.39 (7.35-7.45)
[2018-11-11 05:37] LABS: MODALITY VENTILATOR
[2018-11-11 06:03] LABS: ALB/GLOB RATIO 1.4; ALBUMIN 3.2 g/dL (3.5-5.0); CALCIUM 8.3 mg/dL (8.8-10.2); POTASSIUM 3.2 mmol/L (3.5-5.1); TOTAL BILIRUBIN 1.32 mg/dL (0.20-1.00); TOTAL PROTEIN 5.5 g/dL (6.3-8.3)
[2018-11-11] MEDS: HUMULIN R SUBQ SCH ×4 (06:18→20:40)
--- NOTE | 2018-11-11 07:20 | Diag Imaging Result Doc PS360 ---
EXAM: CHEST-PORTABLE HISTORY: respiratory failure TECHNIQUE: Portable chest single view COMPARISON: 11/10/2018 FINDINGS: Endotracheal tube is in good position. The heart remains enlarged and there is vascular distention as well as a small left pleural effusion. There may be underlying infiltrates. There is a left-sided pacemaker. The appearance of the chest is fairly similar to the prior exam. IMPRESSION: Stable chest. Electronically signed by Ramirez Matt 11/11/2018 7:18 AM
[2018-11-11] MEDS: ZYVOX 600 MG/D5W 600 MG/300 ML IVPB IV SCH ×2 (08:20→20:40)
[2018-11-11] MEDS: POTASSIUM CHLORIDE 20 MEQ/SWI 20 MEQ/100 ML IVPB IV SCH ×2 (08:20→12:22)
[2018-11-11] MEDS: 1/2 NS 1,000 ML IV SCH (08:34)
--- NOTE | 2018-11-11 08:57 | PROGRESS NOTE ---
DATE: 11/11/2018 SUBJECTIVE: The patient continues to be sedated and intubated. He is not requiring any vasopressors. No acute issues noted as per nursing staff overnight. OBJECTIVE: Vital Signs: Temperature 99.0 degrees, heart rate 85, respiratory rate 22, blood pressure 127/90, O2 saturation 97% on FiO2 of 40%. He is on a ventilator. General Examination: This is a chronically ill appearing, 67-year-old, male, lying in bed, in no acute distress. Sedated and intubated. HEENT: Head is normocephalic and atraumatic. Tongue protruding out. Neck: No JVD noted. No carotid bruits. No lymphadenopathy. No thyromegaly. Cardiovascular Examination: S1 and S2 heard. No murmurs, gallops, or rubs. Regular rate and rhythm. Respiratory Examination: Minimal coarse breath sounds are still noted in both pulmonary bases. Patient not using any accessory muscles or having work of breathing. Abdomen: Soft. A little bit distended but nontender to palpation. Bowel sounds present. No organomegaly. Extremities: There is 1+ pitting edema in both upper and lower extremities. Neurological Examination: The patient is sedated and intubated. Laboratory Data: White cell count 6.63, hemoglobin 11.7, hematocrit 35.7, platelets 84,000. ABG shows pH 7.39, with pCO2 of 34, PO2 87. BMP reveals sodium 146, potassium 3.2, creatinine 4.0, calcium 8.3, albumin is 3.2. ProBNP from yesterday was greater than 35,000. ASSESSMENT AND PLAN: 1. Acute hypoxemic respiratory failure, on the ventilator. The patient is on the ventilator at FiO2 of 40%. He is not tachypneic. Pulmonary is following with this patient. We will follow their recommendations. 2. Known ischemic cardiomyopathy with ejection fraction of 15 to 20 percent. Yesterday, blood pressure was low, requiring vasopressors. Today, blood pressure is better and not requiring any vasopressors. Cardiology has been consulted. The ordered a limited echocardiography for evaluation of the ventricular function and they also mentioned the possibility of using Primacor but we will leave to them to start that medication. The patient is not on Lasix. We will continue to monitor this patient closely. 3. Acute on chronic kidney disease. Renal function continues to get worse. Volume status is somewhat difficult to assess, according to nephrology. At this point, we will continue following recommendations from Dr. Hewitt. 4. Diabetes mellitus type 2. We will continue with sliding scale insulin and Accu-Cheks before meals and also at bedtime. 5. Paroxysmal atrial fibrillation. The patient's heart rate is now controlled, in normal sinus rhythm now. The patient has a biventricular pacemaker. We will continue to monitor. 6. History of stroke and dementia, aware. 7. Disposition. The patient is very critically ill. Cardiology and nephrology are following this patient. We will follow recommendations. Also, pulmonary is on board. cc: Bull Kline MD
[2018-11-11] MEDS: ELIQUIS PO SCH (09:20)
[2018-11-11 09:39] LABS: MPV 11.6 FL (7.4-10.4)
--- NOTE | 2018-11-11 11:01 | CARDIOLOGY PROGRESS NOTE ---
DATE: 11/11/2018 SUBJECTIVE: Patient continues sedated on ventilator. OBJECTIVE: Blood pressure 140/100 off pressors, heart rate 86, oxygen saturation 98%. Jugular distention cannot be appreciated. Auscultation of the chest revealed coarse breath sounds bilaterally. Cardiac exam reveals a regular rate and rhythm without appreciable murmur or gallop. Extremities demonstrate very mild edema. DIAGNOSTIC STUDIES: Laboratory data includes a white blood cell count 6.53 hematocrit 35.7, hemoglobin 11.7, platelet count 84,000. Sodium 146, potassium 3.2, chloride 111, carbon dioxide 17, BUN 37, creatinine 4.0, glucose 97. Limited echocardiography preliminary report indicates severely depressed left ventricular systolic function with left ventricular ejection fraction of 15% in the setting of severe global hypokinesis. IMPRESSION: 1. Hypoxemic respiratory failure. 2. Suspect acute on chronic systolic heart failure. 3. Severe nonischemic cardiomyopathy. 4. Moderate pulmonary hypertension. 5. Obstructive sleep apnea with noncompliance with continuous positive airway pressure (CPAP). 6. Acute on chronic renal dysfunction. Suspect component of cardiorenal syndrome. 7. Diabetes mellitus. 8. Possible associated pneumonia/sepsis. RECOMMENDATIONS: 1. Now that patient is off pressors, we will initiate Primacor and try to bolster cardiac performance. 2. Efforts to try and diurese have met with limited result. 3. Try to bolster cardiac performance. cc: Josue Beach MD
[2018-11-11] MEDS: PRIMACOR 20 MG/D5W 100 ML 20 MG/100 ML IVPB IV SCH ×2 (12:07→17:28)
[2018-11-11] MEDS: ARIXTRA SUBQ SCH (12:22)
[2018-11-12] MEDS: DIPRIVAN 1% 1,000 MG/100 ML BOTTLE IV SCH ×9 (00:34→23:09)
[2018-11-12] MEDS: PRIMACOR 20 MG/D5W 100 ML 20 MG/100 ML IVPB IV SCH ×5 (00:34→17:14)
--- NOTE | 2018-11-12 02:19 | ECHO REPORT ---
ORDER DATE: 11/10/2018 SUMMARY: 1. Limited study performed. Parasternal acoustic window quality is fair, while apical window is technically difficult. 2. The aortic valve is trileaflet and opens adequately on 2-dimensional images. Peak gradient across aortic valve is less than 10 mmHg. Mitral and tricuspid valves are without evidence of structural abnormality, while the pulmonic valve is not demonstrated. There is mild mitral regurgitation. The aortic root is grossly normal in size. 3. Moderate left ventricular enlargement with normal wall thickness demonstrated. The estimated left ejection fraction is approximately 15% in the setting of severe global hypokinesis. The left atrium is ekru-[id number]-[id number] enlarged. The right atrium and right ventricle are grossly normal in size. Pacemaker/defibrillator lead evident in the right ventricle, without evidence of structural abnormality with mild mitral regurgitation and mild tricuspid regurgitation. The estimated systolic PA pressure by Doppler is 40 mmHg. The pulmonic valves is not well demonstrated. The aortic root is normal in size. 4. Moderate left ventricular enlargement with normal wall thickness is demonstrated. The estimated left ejection fraction is approximately 15% in the setting of severe global hypokinesis. The left atrium is toxc-rw-xrfimhhyjv enlarged. The right atrium and right ventricle are normal in size. Pacemaker lead/defibrillator lead is evident in the right ventricle. 5. No pericardial effusion. 6. Appearance of the inferior vena cava suggests elevated central venous pressure. cc: Josue Beach MD
[2018-11-12] MEDS: ZOSYN 2.25 GM in NS 50 ML IV SCH ×3 (02:23→18:15)
[2018-11-12] MEDS: 1/2 NS 1,000 ML IV SCH (02:33)
[2018-11-12] MEDS: MORPHINE IV PRN (03:26)
[2018-11-12] MEDS: DUONEB (A & A) INH SCH ×6 (03:30→22:49)
[2018-11-12 04:44] LABS: ALLEN TEST YES; BE -4.6 mmoll (-3.0-3.0); BLOOD TYPE ARTERIAL; HCO3-(ACT) 21.3 mmoll (20.0-26.0); METHB 1.3 % (0.0-1.5); O2(CT) 15.8 mL/dL (15.0-23.0); O2HB 96.1 % (95.0-99.0); PCO2(98.6) 27 mmHg (35-45); PO2(98.6) 153 mmHg (60-100); SAMPLE BLOOD; SAO2 99.2 % (95.0-100.0); SRATE 14 BPM; THB 11.5 g/dL (11.5-17.4); TVOL 500 mL; pH(98.6) 7.44 (7.35-7.45)
[2018-11-12 04:45] LABS: MODALITY VENTILATOR
[2018-11-12 04:58] LABS: BASO# 0.01 X1000 (0.0-0.2); BASO% 0.2 % (0.0-0.8); EOS# 0.18 X1000 (0.0-0.7); EOS% 2.7 % (0.0-10.0); HEMATOCRIT 33.6 % (42.0-52.0); HEMOGLOBIN 11.1 g/dL (14.0-18.0); IMM GRAN# 0.04 X1000 (0.0-0.04); IMM GRAN% 0.6 % (0.0-0.5); LYMPH% 10.6 % (20.5-51.1); MCV 90.8 FL (81-99); MONO# 0.72 X1000 (0.11-0.59); MONO% 10.9 % (1.7-9.3); MPV 11.5 FL (7.4-10.4); NEUT# 4.96 X1000 (1.4-6.5); PLT 108 X1000 (130-400); RDW 14.8 % (11.5-14.5); WBC 6.61 X1000 (4.8-10.8)
[2018-11-12 05:52] LABS: ALB/GLOB RATIO 1.3; CALCIUM 8.4 mg/dL (8.8-10.2); CREATININE 3.5 mg/dL (0.7-1.2); POTASSIUM 3.5 mmol/L (3.5-5.1); TOTAL BILIRUBIN 1.07 mg/dL (0.20-1.00); TOTAL PROTEIN 5.4 g/dL (6.3-8.3)
[2018-11-12] MEDS: HUMULIN R SUBQ SCH ×4 (06:22→20:19)
[2018-11-12 07:10] LABS: EOS 2 % (1-10); LYMPHS 14 % (21-51); SEGS 84 % (42-75)
--- NOTE | 2018-11-12 07:50 | Diag Imaging Result Doc PS360 ---
CHEST-PORTABLE - 11/12/2018 INDICATION: respiratory failure COMPARISON: 11/11/2018 FINDINGS: Stable endotracheal tube at T3. Stable left-sided pacemaker. Stable significant cardiomegaly and pulmonary vascular congestion. There is slight worsening trace atelectasis or effusions in the lung bases. IMPRESSION: Slight worsening, trace atelectasis or effusions in the lung bases. Electronically signed by David Grey 11/12/2018 7:47 AM
[2018-11-12] MEDS ORDERED: LASIX IV ONE (08:31)
--- NOTE | 2018-11-12 09:24 | PROGRESS NOTE ---
DATE: 11/12/2018 SUBJECTIVE: Patient is sitting in the bed. No acute issues noted as per nursing staff overnight. OBJECTIVE: Vital Signs: Temperature 97.7 degrees, heart rate 130, respiratory rate 14, blood pressure 87/55, O2 saturation 100% on mechanical ventilator at FiO2 of 40%. General: This is a chronically ill-appearing 67-year-old -[place] male lying in bed in no acute distress. Sedated and intubated. HEENT: Head is normocephalic, atraumatic with protruding tongue. Neck: No JVD noted. No carotid bruits. No lymphadenopathy. No thyromegaly. Cardiovascular: S1, S2 heard. No murmurs, gallops, or rubs. Regular rate and rhythm. Respiratory: Minimal coarse breath sounds still noted in both pulmonary bases. Patient is not using any accessory muscles or having work of breathing. Abdomen: Soft, a little bit distended, but nontender to palpation. Bowel sounds present. No organomegaly. Extremities: 1+ pitting edema in both upper and lower extremities. Neurological: Patient is sedated and intubated. LABORATORY DATA: White count 6.6, hemoglobin 11.1, hematocrit 33.6, platelets 108. ABG shows pH 7.44 with pCO2 27, PO2 53. BMP remarkable for creatinine 3.5, total protein 5.4, albumin 3.0. ASSESSMENT AND PLAN: 1. Acute hypoxemic respiratory failure on ventilator. The patient continues to require FiO2 40% since yesterday but he is not tachypneic. Pulmonary is following with this patient and we will follow their recommendation. 2. Nonischemic cardiomyopathy with ejection fraction of 15 to 20 percent. That finding has been confirmed with an echo done here in the hospital. He never required any vasopressors. Cardiology has been consulted. They have decided to start this patient on milrinone. We will continue to monitor this patient closely. Cardiology also is following this patient as mentioned before. The patient is going to receive 1 dose of Lasix today because he looks like he is volume overloaded and he has JVD noted on both sides. 3. Acute on chronic kidney disease. Renal function is getting a little bit better today. Dr. Hewitt is following this patient. We will follow recommendations. 4. Diabetes mellitus type 2. We will continue with sliding scale insulin and Accu-Chek before meals and also at bedtime. 5. Paroxysmal atrial fibrillation. Heart rate is now well controlled, actually there is sinus tachycardia. After patient started Primacor, we started noticing tachycardia, so if he continues with that, will provide metoprolol. 6. History of stroke and dementia, aware. DISPOSITION: Patient continues to be critically ill. Cardiology and Nephrology are following on this patient. We will follow their recommendations. cc: Bull Kline MD
[2018-11-12] MEDS: ZYVOX 600 MG/D5W 600 MG/300 ML IVPB IV SCH ×2 (09:33→20:20)
[2018-11-12] MEDS: ARIXTRA SUBQ SCH (09:33)
--- NOTE | 2018-11-12 10:42 | NEPHROLOGY PROGRESS NOTE ---
DATE: 11/12/2018 Date seen 11/2017. Time seen 0650. SUBJECTIVE: Mr. Levi is currently ventilator dependent. He is resting quietly in bed. Head of the bed is slightly elevated. OBJECTIVE: His most recent vital signs: His temperature 99.1. He has been as high as 99.5 during the night.Vital Signs: For blood pressure 92/55, heart rate 130 his respirations are 12. He remains on 40% FiO2. Last recorded saturation is 100%. He has had 3625 in, 1050 out for positive of 6.5 L in the last 24 hours. LABS: Sodium is 141, potassium 3.5, chloride 106, CO2 17, BUN 35, creatinine 3.5, glucose is 146. His anion gap is 18. His calcium is 8.4, albumin is 3. White count 6.61, hemoglobin 11.1, hematocrit 33.6, with a platelet count of 108,000. ABGs pH 7.44, CO2 27, PO2 153, bicarb 21.3 on 40% FiO2. PHYSICAL EXAMINATION: General: This is a 67-year-old male resting quietly in bed, head of the bed is slightly elevated. He is ventilator dependent. He is in no acute distress. Skin: Warm and dry. HEENT: Normocephalic, atraumatic. Conjunctiva is pale. He has TENISHA. Mucous membranes are moist with oral ET tube remaining intact. Neck: Supple. Trachea midline. No evidence of JVD. Cardiovascular: Regular rate and rhythm. He is tachycardic. Lungs: Clear to auscultation on the anterior surface. Remains ventilatory support. Abdomen: Large, round, soft, nontender. Positive bowel sounds. Genitourinary: Mullen catheter is in place with adequate documented out. Extremities: Have 1+ lower extremity edema. Neurological: Awake. ASSESSMENT AND PLAN: 1. Acute kidney injury overlying chronic kidney disease. Patient's recent acute changes more likely related to his ischemic cardiomyopathy and heart failure. Patient has been on diuretics. Volume status again is difficult to assess. He remains on normal saline. He continues with Levophed and Milrinone. He does remain slightly tachycardic. The patient has had a chest x-ray completed this a.m. indicating slight worsening of atelectasis or effusions in the lung bases. He has had adequate urine output documented. We will continue to monitor. 2. Electrolytes and acid-base balance. These are all acceptable. 3. Anemia, this is low but stable. 4. Fluid volume overload with congestive heart failure. The patient is currently off his Lasix. We will determine if we need to give an extra dose this a.m. or not secondary to his chest x- ray. 5. Pneumonia. Patient remains on Zyvox and Zosyn, all renally dosed. I would like to thank you for allowing us to follow with this patient. Dictated by TAMIKA Wiggins for Usman Hewitt MD Face to face encounter, data reviewed, discussed with Alyson Farias on 11/12/18. I agree with the above assessment and plan of care. cc: TAMIKA Wiggins MD [facility]
--- NOTE | 2018-11-12 14:06 | CARDIOLOGY PROGRESS NOTE ---
DATE: 11/12/2018 SUBJECTIVE: Patient continues on ventilator. Sedated. OBJECTIVE: Blood pressure 90/60 with heart rate 110 with ECG monitor showing sinus rhythm, oxygen saturation 98% to 100% with FIO2 of 40%. Auscultation of the chest reveals coarse breath sounds bilaterally anteriorly. Cardiac exam reveals a regular rate and rhythm without appreciable murmur or gallop. Extremities demonstrate very mild edema. LABORATORY DATA: Includes a white blood cell count of 6.61, hematocrit 33.6, hemoglobin 11.1, platelet count 108,000. Sodium 141, potassium 3.5, chloride 106, carbon dioxide 17, BUN 35, creatinine 3.5, glucose 146. IMPRESSION: 1. Hypoxemic respiratory failure. 2. Severe nonischemic cardiomyopathy. 3. Moderate pulmonary hypertension. 4. Obstructive sleep apnea with noncompliance with CPAP in the past. 5. Acute on chronic systolic heart failure. 6. Acute on chronic renal dysfunction. Suspect component of cardiorenal syndrome. 7. Diabetes mellitus. 8. Possible associated pneumonia/sepsis. RECOMMENDATIONS: Continue Primacor at low dose. cc: Josue Beach MD
--- NOTE | 2018-11-12 18:43 | PULMONOLOGY PROGRESS NOTE ---
DATE: 11/12/2018 SUBJECTIVE: The patient is arousable. He is not following commands. OBJECTIVE: Vital Signs: Heart rate 102, respiratory rate 21, blood pressure 92/51, oxygen saturation 100%. He is currently on Milrinone. Intake 3625, output 1050. He is approximately 6.5 L positive this hospital stay. HEENT: Pupils are equal and reactive. Oropharynx appears clear. Neck: Supple. Chest: Reveals distant breath sounds bilaterally with S1, S2 and S3. Abdomen: Soft with diminished bowel sounds. Extremities: Reveal 1+ peripheral edema. LABORATORIES: Chest x-ray reveals cardiomegaly,, vascular congestion, with slight increased effusion in the lung bases. Sodium 141, potassium 3.5, chloride 106, bicarbonate 17, BUN 35, creatinine 3.5. Arterial blood gas: pH 7.44, pCO2 of 27, pO2 of 153. Microbiology reveals no growth on sputum or blood cultures. IMPRESSION: A 67-year-old with: 1. Acute hypoxemic respiratory failure. 2. Ischemic cardiomyopathy with heart failure with reduced ejection fraction. 3. Acute on chronic renal failure. 4. Mild to moderate pulmonary hypertension. 5. Dementia. 6. Diabetes mellitus. 7. History of strokes. 8. AICD placement. PLAN: 1. Continue current ventilatory support. He is currently failing weaning attempts. 2. Continue sedation. 3. Continue to support cardiac output with Milrinone as outlined by Cardiology. 4. Nephrology management for acute renal failure. 5. Prognosis is poor. TIME SPENT: Time spent critical care 30+ minutes.. cc: Jaime Torres MD
[2018-11-13] MEDS: PRIMACOR 20 MG/D5W 100 ML 20 MG/100 ML IVPB IV SCH ×2 (00:41→09:07)
[2018-11-13] MEDS: MORPHINE IV PRN ×2 (01:36→09:52)
[2018-11-13] MEDS: ZOSYN 2.25 GM in NS 50 ML IV SCH ×3 (01:36→17:12)
[2018-11-13] MEDS: DIPRIVAN 1% 1,000 MG/100 ML BOTTLE IV SCH ×7 (02:11→20:33)
[2018-11-13] MEDS: DUONEB (A & A) INH SCH ×6 (03:22→23:30)
[2018-11-13 04:51] LABS: ALLEN TEST YES; BE -4.5 mmoll (-3.0-3.0); BLOOD TYPE ARTERIAL; HCO3-(ACT) 21.4 mmoll (20.0-26.0); METHB 1.2 % (0.0-1.5); O2HB 95.7 % (95.0-99.0); PCO2(98.6) 30 mmHg (35-45); PO2(98.6) 101 mmHg (60-100); SAMPLE BLOOD; SAO2 98.8 % (95.0-100.0); SRATE 10 BPM; THB 13.3 g/dL (11.5-17.4); TVOL 500 mL; pH(98.6) 7.41 (7.35-7.45)
[2018-11-13 05:03] LABS: MODALITY VENTILATOR
[2018-11-13 05:48] LABS: BASO# 0.01 X1000 (0.0-0.2); BASO% 0.2 % (0.0-0.8); EOS# 0.08 X1000 (0.0-0.7); EOS% 1.4 % (0.0-10.0); HEMATOCRIT 31.6 % (42.0-52.0); HEMOGLOBIN 10.7 g/dL (14.0-18.0); IMM GRAN# 0.03 X1000 (0.0-0.04); IMM GRAN% 0.5 % (0.0-0.5); LYMPH# 0.68 X1000 (1.2-3.4); LYMPH% 11.6 % (20.5-51.1); MCH 29.7 PG (27-31); MCHC 33.9 g/dL (33-37); MCV 87.8 FL (81-99); MONO# 0.58 X1000 (0.11-0.59); MONO% 9.9 % (1.7-9.3); MPV 11.2 FL (7.4-10.4); NEUT# 4.46 X1000 (1.4-6.5); NEUT% 76.4 % (42.2-75.2); PLT 118 X1000 (130-400); RDW 14.6 % (11.5-14.5); WBC 5.84 X1000 (4.8-10.8)
[2018-11-13 06:19] LABS: ALB/GLOB RATIO 1.1; CALCIUM 8.9 mg/dL (8.8-10.2); POTASSIUM 3.3 mmol/L (3.5-5.1); TOTAL BILIRUBIN 0.77 mg/dL (0.20-1.00); TOTAL PROTEIN 5.7 g/dL (6.3-8.3)
[2018-11-13] MEDS: HUMULIN R SUBQ SCH ×4 (06:20→20:43)
[2018-11-13] MEDS: LASIX IV SCH ×2 (06:28→17:31)
--- NOTE | 2018-11-13 07:25 | Diag Imaging Result Doc PS360 ---
EXAM: CHEST-PORTABLE INDICATION: respiratory failure TECHNIQUE: One view COMPARISON: 11/12/2018 FINDINGS: ET tube is in stable position. Pulmonary venous congestion is stable. Mild atelectasis and/or effusion at the lung bases are essentially stable. No new consolidation is identified. Cardiac silhouette is stable. IMPRESSION: Stable chest. Electronically signed by Jb Watt 11/13/2018 7:23 AM
[2018-11-13] MEDS: ARIXTRA SUBQ SCH (08:01)
[2018-11-13] MEDS: ZYVOX 600 MG/D5W 600 MG/300 ML IVPB IV SCH ×2 (08:01→20:33)
[2018-11-13] MEDS: POTASSIUM CHLORIDE 20 MEQ/SWI 20 MEQ/100 ML IVPB IV SCH ×2 (08:08→10:19)
[2018-11-13] MEDS: LACRI-LUBE OPH OINT BOTH EYES PRN (09:52)
--- NOTE | 2018-11-13 11:01 | NEPHROLOGY PROGRESS NOTE ---
DATE: 11/13/2018 TIME SEEN: 0610. SUBJECTIVE: Mr. Levi is resting quietly in bed. He is ventilator dependent. He does not open his eyes to verbal stimuli. Continues with Diprivan. OBJECTIVE: Vitals: His most recent vital signs, temperature 98.4 degrees, blood pressure 110/63, heart rate 135, respirations 30, he is on 40% FiO2. Last recorded saturation 98%. General: This is a 67-year-old male resting quietly in bed, ventilatory dependent with sedation. He appears in no acute distress. HEENT: Normocephalic, atraumatic. Conjunctiva is pale. He has TENISHA. Mucous membranes are dry. Neck: Supple. Oral ET tube remains in place. No evidence of JVD. Cardiovascular: Regular rate and rhythm. Tachycardic on the monitor. Lungs: Clear to auscultation anteriorly. Equal excursion on O2 support. Abdomen: Soft, large, round, nontender. Positive bowel sounds. Genitourinary: Adequate urine out to Mullen catheter. Extremities: 1+ lower extremity edema. Neurological: As above. INPUT AND OUTPUT: He has had 1996 in, the patient has had 1925 out to Mullen catheter. LABORATORY DATA: Sodium 141, potassium 3.3, chloride 105, CO2 18, BUN 33, creatinine 3, glucose 164. Anion gap of 18, calcium 8.9, albumin of 3. White count 5.84, hemoglobin 10.7, hematocrit 31.6 with a platelet count of 118,000. Arterial blood gases: PH 7.41, CO2 30, PO2 101, bicarb 21.7. Lactate of 1.5 on 40% FiO2. ASSESSMENT AND PLAN: 1. Acute kidney injury overlying chronic kidney disease. Patient's recent acute changes more than likely related to ischemic cardiomyopathy with decompensation. The patient's BUN and creatinine have slowly improved over the last several days. Adequate urine output. No indications for intervention. We will continue to monitor. 2. Electrolytes and acid-base balance. The patient has mild hypokalemia. We will replace with a 40 mEq potassium rider today and re-evaluate his laboratories in the a.m. 3. Anemia this is low, but stable. 4. Sepsis. Patient remains on renal-dosed antibiotics of Zosyn and Zyvox. 5. Fluid volume overload with congestive heart failure. He remains on Lasix. We will increase this dose to 100 mg b.i.d. and continue to monitor. I would to thank you for allowing us to follow with this patient. Dictated by TAMIKA Wiggins for Usman Hewitt MD Face to face encounter, data reviewed, discussed with Alyson Farias on 11/13/18. I agree with the above assessment and plan of care. cc: TAMIKA Wiggins MD [facility]
--- NOTE | 2018-11-13 11:35 | Diag Imaging Result Doc PS360 ---
EXAM: CHEST-PORTABLE HISTORY: ngt placement TECHNIQUE: Portable chest abdomen single view COMPARISON: 5:16 AM FINDINGS: Interval placement of the nasogastric tube. The tip overlies the upper stomach. It could probably be advanced. No other interval change. IMPRESSION: Only the distal portion of the nasogastric tube enters the stomach. This should probably be advanced. Electronically signed by Ramirez Matt 11/13/2018 11:32 AM
--- NOTE | 2018-11-13 12:48 | EKG Report ---
Test Performed on : 11/13/2018 11:13:18 AM Test Reason : rhythm change Blood Pressure : / mmHG Vent. Rate : 106 BPM Atrial Rate : 106 BPM P-R Int : 148 ms QRS Dur : 094 ms QT Int : 370 ms P-R-T Axes : 068 -58 095 degrees QTc Int : 491 ms Sinus tachycardia. with premature supraventricular complexes. and with occasional premature ventricul ar complexes. Possible Left atrial enlargement Left axis deviation Nonspecific T wave abnormality Abnormal ECG When compared with ECG of 09-NOV-2018 09:03, (Unconfirmed) Sinus rhythm. has replaced Junctional rhythm. Incomplete right bundle branch block is no longer present Non-specific change in ST segment in Anterior leads Nonspecific T wave abnormality now evident in Lateral leads Unconfirmed Result
[2018-11-13] MEDS ORDERED: POTASSIUM CHLORIDE 20 MEQ/SWI 20 MEQ/100 ML IVPB IV ONE (14:36)
[2018-11-13] MEDS ORDERED: POTASSIUM CHLORIDE 20 MEQ/SWI 20 MEQ/100 ML IVPB IV SCH (15:00)
[2018-11-13] MEDS: SOLU-CORTEF IV SCH ×2 (17:12→23:47)
--- NOTE | 2018-11-13 17:39 | CARDIOLOGY PROGRESS NOTE ---
DATE: 11/13/2018 SUBJECTIVE: The patient continues sedated on the ventilator. Intravenous milrinone was stopped due to tendency for significant tachycardia heart rate of 130 beats per minute. OBJECTIVE: Vital Signs: Blood pressure 118/59, heart rate 100 to 137, oxygen saturation 99% to 100% with FiO2 of 40% on the ventilator. Neck: Jugular venous distention cannot be appreciated. Lungs: Auscultation of chest reveals coarse breath sounds bilaterally. Cardiac: Exam reveals a regular rate and rhythm without appreciable murmur or gallop. Extremities: There is mild peripheral edema. LABORATORY DATA: Includes sodium 141, potassium 3.3, chloride 105, carbon dioxide set 18, BUN 33, creatinine 3, glucose 164, albumin 3. IMPRESSION: 1. Hypoxemic respiratory failure. 2. Acute on chronic systolic heart failure. 3. Severe nonischemic cardiomyopathy. 4. Moderate pulmonary hypertension. 5. Obstructive sleep apnea with noncompliance with CPAP. 6. Acute on chronic renal dysfunction. Suspect component of cardiorenal syndrome. 7. Diabetes mellitus. 8. Possible associated pneumonia/sepsis. RECOMMENDATIONS: 1. Primacor stopped due to excessive tendency for tachycardia. 2. Add low-dose hydralazine. 3. Continue cautious diuresis. cc: Josue Beach MD
--- NOTE | 2018-11-13 18:03 | PULMONOLOGY PROGRESS NOTE ---
DATE: 11/13/2018 SUBJECTIVE: The patient was on milrinone earlier today, but this was discontinued due to tachycardia. He is sedate. OBJECTIVE: Input and Output: His input is 1996 and output 1924. The patient is approximately 6.5 liters positive during this hospitalization. Vital Signs: Blood pressure 107/61, heart rate currently 100, respiration rate 20, temperature 97.3 degrees. HEENT: Pupils are equal and reactive. Oropharynx appears clear. Neck: Supple. Chest: Reveals prolonged expiratory phase. Cardiac: Increased rate. Regular rhythm. Abdomen: Soft and obese. Extremities: Reveal trace to 1+ peripheral edema. LABORATORIES: Chest x-ray reveals cardiomegaly with vascular congestion, which is unchanged, along with small effusions in the bases. Sodium 141, potassium 3.3, chloride 105, bicarbonate 18, BUN 33, creatinine 3. Arterial blood gas reveals a pH 7.41, pCO2 of 30, PO2 of 101. White blood count 5.84, hemoglobin 10.7, platelet count 118,000. Chemistries: Cortisol level is 9.5. IMPRESSION: A 67-year-old with: 1. Acute hypoxemic respiratory failure. 2. Ischemic cardiomyopathy with severe reduction in ejection fraction. 3. Acute on chronic renal failure. 4. Mild to moderate pulmonary hypertension. 5. Dementia. 6. Diabetes mellitus. 7. History of stroke. 8. Automatic implantable cardioverter-defibrillator placement. 9. Relatively low cortisol level given degree of physiologic stress. 10. Protein-calorie malnutrition. RECOMMENDATION: 1. Continue ventilatory support. He is too weak and has failed attempts at weaning. 2. Continue sedation. 3. Continue cardiac management per Cardiology. 4. Continue to monitor renal function which is marginally improved. 5. Place NG tube and initiation of tube feeds to prevent progression of protein-calorie malnutrition. 6. Initiate low-dose hydrocortisone given relatively low cortisol level. 7. Overall prognosis is poor. End of life discussions/palliative care consultation per the palliative care nurse recommended. TIME SPENT: The time spent for critical care was 30 plus minutes. cc: Jaime Torres MD
--- NOTE | 2018-11-13 18:34 | PROGRESS NOTE ---
DATE: 11/13/2018 SUBJECTIVE: The patient is currently sedated on the ventilator. He was noted to be tachycardic this morning while on the Primacor drip. This has since been discontinued . OBJECTIVE: Vital Signs: Temperature 98.6 degrees, blood pressure 124/72, heart rate 131, respirations 17, O2 saturations 99% on the mechanical ventilator, intake 1.9 L, output 1.9 L. General: This is a chronically ill-appearing elderly male currently on the ventilator. Head: Normocephalic, atraumatic. Eyes: The patient has significant periorbital edema. Heart: S1, S2 normal. Tachycardic. Lungs: Coarse breath sounds bilaterally. Abdomen: Positive bowel sounds. Soft, nontender, nondistended. Extremities: 1+ edema. Neuro: The patient is sedated. LABS: White blood cell count 5.8, hemoglobin 10, hematocrit 31, platelets 118,000, sodium 141, potassium 3.3, chloride 105, CO2 18, BUN 33, creatinine 3, glucose 164. Chest x-ray show shows pulmonary venous congestion. ASSESSMENT AND PLAN: 1. Acute hypoxemic respiratory failure. Likely secondary to volume overload. Continue with ventilatory management as directed by the monotype keyboard operator. 2. Acute on chronic systolic congestive heart failure exacerbation. The patient is currently on diuretic therapy under the direction of workforce management consultant. Cardiology is also following. 3. Severe nonischemic cardiomyopathy. Aware. 4. Acute kidney injury on chronic kidney disease. Slightly improved. The patient's urine output remains adequate. Further management as per the workforce management consultant. 5. Morbid obesity. Aware. 6. Pulmonary hypertension. Aware. 7. Diabetes mellitus type 2. Continue with sliding scale insulin. 8. Protein calorie malnutrition. Tube feeds have been initiated today. 9. Gastrointestinal prophylaxis. Continue on Protonix. 10. Deep vein thrombosis prophylaxis. Continue on Arixtra. 11. Disposition. The patient is critically ill with a high risk of mortality. Will consult palliative care for assistance with goals of care. cc: Keisha Galicia MD MTDD
[2018-11-14] MEDS: DIPRIVAN 1% 1,000 MG/100 ML BOTTLE IV SCH ×6 (00:23→22:22)
[2018-11-14] MEDS: ZOSYN 2.25 GM in NS 50 ML IV SCH ×3 (02:55→18:20)
[2018-11-14] MEDS: TYLENOL PR PRN (03:04)
[2018-11-14] MEDS: MORPHINE IV PRN (03:04)
[2018-11-14] MEDS: DUONEB (A & A) INH SCH ×6 (03:52→22:39)
[2018-11-14 05:08] LABS: ALLEN TEST YES; BE -0.1 mmoll (-3.0-3.0); BLOOD TYPE ARTERIAL; HCO3-(ACT) 24.9 mmoll (20.0-26.0); METHB 1.2 % (0.0-1.5); O2(CT) 14.8 mL/dL (15.0-23.0); O2HB 96.7 % (95.0-99.0); PCO2(98.6) 26 mmHg (35-45); PO2(98.6) 191 mmHg (60-100); SAMPLE BLOOD; SAO2 100.1 % (95.0-100.0); SRATE 10 BPM; THB 10.6 g/dL (11.5-17.4); TVOL 500 mL; pH(98.6) 7.53 (7.35-7.45)
[2018-11-14 05:09] LABS: MODALITY VENTILATOR
[2018-11-14] MEDS: LASIX IV SCH ×2 (06:16→18:20)
[2018-11-14 06:43] LABS: BASO# 0.01 X1000 (0.0-0.2); BASO% 0.2 % (0.0-0.8); EOS# 0.14 X1000 (0.0-0.7); EOS% 2.4 % (0.0-10.0); HEMATOCRIT 32.6 % (42.0-52.0); HEMOGLOBIN 10.9 g/dL (14.0-18.0); IMM GRAN# 0.05 X1000 (0.0-0.04); IMM GRAN% 0.8 % (0.0-0.5); LYMPH# 0.45 X1000 (1.2-3.4); LYMPH% 7.6 % (20.5-51.1); MCH 29.4 PG (27-31); MCHC 33.4 g/dL (33-37); MCV 87.9 FL (81-99); MONO# 0.49 X1000 (0.11-0.59); MONO% 8.2 % (1.7-9.3); MPV 11.1 FL (7.4-10.4); NEUT# 4.81 X1000 (1.4-6.5); NEUT% 80.8 % (42.2-75.2); PLT 116 X1000 (130-400); RBC 3.71 XMIL (4.7-6.1); RDW 14.9 % (11.5-14.5); WBC 5.95 X1000 (4.8-10.8)
[2018-11-14] MEDS: HUMULIN R SUBQ SCH ×4 (06:49→20:09)
[2018-11-14 07:35] LABS: ALBUMIN 3.1 g/dL (3.5-5.0); CALCIUM 9.3 mg/dL (8.8-10.2); CREATININE 2.8 mg/dL (0.7-1.2); MAGNESIUM 1.8 mg/dL (1.5-2.7); PHOSPHORUS 5.4 mg/dL (2.7-4.5); TOTAL BILIRUBIN 0.73 mg/dL (0.20-1.00); TOTAL PROTEIN 6.1 g/dL (6.3-8.3)
--- NOTE | 2018-11-14 07:57 | Diag Imaging Result Doc PS360 ---
EXAM: CHEST-PORTABLE INDICATION: respiratory failure TECHNIQUE: One view COMPARISON: 11/13/2018 FINDINGS: Support tubes and lines are in stable positions. Pulmonary venous congestion is stable to marginally improved. No new consolidation is identified. Cardiac silhouette is stable. IMPRESSION: Stable to marginal improvement of pulmonary venous congestion. Electronically signed by Jb Watt 11/14/2018 7:55 AM
[2018-11-14] MEDS: ZYVOX 600 MG/D5W 600 MG/300 ML IVPB IV SCH ×2 (08:06→20:09)
[2018-11-14] MEDS: ARIXTRA SUBQ SCH (08:06)
[2018-11-14] MEDS: SOLU-CORTEF IV SCH ×2 (08:06→16:05)
--- NOTE | 2018-11-14 08:43 | NEPHROLOGY PROGRESS NOTE ---
DATE: 11/14/2018 SUBJECTIVE: He remains sedated and intubated. OBJECTIVE: Blood pressure 96/57, heart rate 118, respirations 22. Intake 2.3 L, output 3.8 L. Physical Examination: Unresponsive, sedated, on the ventilator. Neck veins are distended. Heart is tachycardic and regular. Lungs have equal breath sounds. No crackles are audible anteriorly. Abdomen soft, nontender. Bowel sounds are present. Extremities have 2+ edema. No clubbing or cyanosis. IMPRESSION: 1. Acute kidney injury secondary to cardiorenal syndrome. BUN and creatinine continue to improve, and urine output is acceptable. 2. Electrolytes/acid base/anemia. All in target. Continue current care. cc: Usman Hewitt MD
--- NOTE | 2018-11-14 15:31 | PROGRESS NOTE ---
DATE: 11/14/2018 SUBJECTIVE: The patient remains on the ventilator. He is still tachycardic and edematous. OBJECTIVE: Vital Signs: Temperature 98.6 degrees, blood pressure 99/68, heart rate 110, respirations 24 and O2 saturation 99% on the mechanical ventilator. Intake 2.2 L, output 3.8 L. General: This is an elderly male lying in bed in no acute distress. HEENT: Head normocephalic. Eyes: The patient has periorbital edema. Heart: S1, S2 normal. Tachycardic. Lungs: Coarse breath sounds bilaterally. Abdomen: Positive bowel sounds. Soft, obese. Extremities: The patient has anasarca in the upper and lower extremities. Neurologic: The patient is sedated. LABORATORY: White blood cell count 5.9, hemoglobin 10, hematocrit 32, and platelets 116,000. Sodium 145, potassium 4, chloride 106, CO2 21, BUN 32, creatinine 2.8, glucose 190, and albumin 3.1. ASSESSMENT AND PLAN: 1. Acute hypoxemic respiratory failure. Continue with ventilatory support as directed by the cover cutter. 2. Acute on chronic systolic congestive heart failure exacerbation. Continue with diuretic therapy. 3. Acute kidney injury on chronic kidney disease. Improved. Management as per the rand butting machine operator. 4. Pulmonary hypertension. Aware. 5. Morbid obesity. Aware. 6. Protein calorie malnutrition. Continue with tube feeds. 7. Gastrointestinal prophylaxis. Continue on Protonix. 8. Diabetes mellitus type 2. Continue with sliding scale insulin. 9. Deep vein thrombosis prophylaxis. The patient has been thrombocytopenic so he is currently on Arixtra. 10. Disposition. The patient remains critically ill with a high risk of mortality. Palliative care will be meeting with the patient's family today. cc: Keisha Galicia MD MTDD
[2018-11-14] MEDS: ISORDIL NG SCH ×2 (16:05→17:23)
[2018-11-14] MEDS: APRESOLINE NG SCH ×2 (16:05→17:23)
--- NOTE | 2018-11-14 19:29 | PULMONOLOGY PROGRESS NOTE ---
DATE: 11/14/2018 SUBJECTIVE: The patient responds to painful stimuli. He appears comfortable on mechanical ventilation. OBJECTIVE: Vital Signs: Systolic blood pressure is ranging between 83 and 120, heart rate 111, respiratory rate 23, oxygen saturation 99%. Intake 2268; output 3800. He is tolerating tube feeds. He has been afebrile for the last 24 hours. HEENT: Pupils are equal and reactive. Oropharynx appears clear. Neck: Supple. Chest: Crackles bilaterally. Cardiac: S1, S2. Abdomen: Obese and soft. Extremities: Generalized edema. LABORATORIES: White blood count 5.95, hemoglobin 10.9, platelet count 116,000. Sodium 145, potassium 4.0, chloride 106, bicarbonate 21, BUN 32, creatinine 2.8. Arterial blood gas: pH 7.53, pCO2 of 26, pO2 of 191. Chest x-ray reveals cardiomegaly, pulmonary venous congestion/pulmonary edema with marginal improvement. IMPRESSION: A 67-year-old with: 1. Acute hypoxemic respiratory failure. 2. Ischemic cardiomyopathy, with severe reduction in ejection fraction. 3. Cardiorenal syndrome, with acute on chronic renal failure. Urine output has improved and kidney function is improving. 4. Mild to moderate pulmonary hypertension. 5. Diabetes mellitus. 6. Dementia. 7. History of stroke. 8. Protein-calorie malnutrition. 9. Relative adrenal insufficiency. RECOMMENDATIONS: 1. Continue ventilatory support as renal function appears to be improving. 2. Continue cardiac management per Cardiology. 3. Continue tube feeds. 4. Continue hydrocortisone. 5. Overall prognosis is poor. End of life discussion/palliative care consultation ongoing. TIME SPENT: Critical care management: 30+ minutes. cc: Jaime Torres MD
--- NOTE | 2018-11-15 01:18 | Extremity Venous Study ---
PROCEDURE NAME: Venous U/S Bilateral Legs - 11/09/2018 PROCEDURE: Bilateral lower extremity venous duplex study. REFERRING PHYSICIAN: TAMIKA Solo. READING PHYSICIAN: Mansoor Ramirez MD. MACHINE SPRING FORMER: Chalo Capellan RVT. INDICATION: Leg swelling and shortness of breath. FINDINGS: The deep and superficial veins of the lower extremities were imaged throughout their course. They are compressible and patent without thrombus. The signals were noted to be pulsatile. INTERPRETATION: No DVT or SVT of either lower extremity. The pulsatile signals may indicate more of a cardiac problem and should be handled clinically. cc: MD Whit Arce CRNP
[2018-11-15] MEDS: DIPRIVAN 1% 1,000 MG/100 ML BOTTLE IV SCH ×3 (02:26→09:40)
[2018-11-15] MEDS: ZOSYN 2.25 GM in NS 50 ML IV SCH ×2 (02:26→09:42)
[2018-11-15] MEDS: SOLU-CORTEF IV SCH ×2 (02:31→08:41)
[2018-11-15] MEDS: DUONEB (A & A) INH SCH ×3 (03:36→11:24)
[2018-11-15 04:52] LABS: BASO# 0.02 X1000 (0.0-0.2); BASO% 0.3 % (0.0-0.8); EOS# 0.04 X1000 (0.0-0.7); EOS% 0.5 % (0.0-10.0); HEMATOCRIT 34.9 % (42.0-52.0); HEMOGLOBIN 11.8 g/dL (14.0-18.0); IMM GRAN# 0.12 X1000 (0.0-0.04); IMM GRAN% 1.6 % (0.0-0.5); LYMPH# 0.65 X1000 (1.2-3.4); LYMPH% 8.8 % (20.5-51.1); MCH 29.9 PG (27-31); MCHC 33.8 g/dL (33-37); MCV 88.4 FL (81-99); MONO# 0.63 X1000 (0.11-0.59); MONO% 8.6 % (1.7-9.3); MPV 10.5 FL (7.4-10.4); NEUT# 5.89 X1000 (1.4-6.5); NEUT% 80.2 % (42.2-75.2); PLT 125 X1000 (130-400); RBC 3.95 XMIL (4.7-6.1); RDW 14.9 % (11.5-14.5); WBC 7.35 X1000 (4.8-10.8)
[2018-11-15 05:24] LABS: ALLEN TEST YES; BE 2.1 mmoll (-3.0-3.0); BLOOD TYPE ARTERIAL; HCO3-(ACT) 26.5 mmoll (20.0-26.0); METHB 0.9 % (0.0-1.5); O2(CT) 15.8 mL/dL (15.0-23.0); O2HB 95.6 % (95.0-99.0); PCO2(98.6) 34 mmHg (35-45); PO2(98.6) 85 mmHg (60-100); SAMPLE BLOOD; SAO2 98.4 % (95.0-100.0); SRATE 10 BPM; THB 11.7 g/dL (11.5-17.4); TVOL 500 mL; pH(98.6) 7.48 (7.35-7.45)
[2018-11-15 05:27] LABS: MODALITY VENTILATOR
[2018-11-15] MEDS: LASIX IV SCH (06:05)
[2018-11-15] MEDS: HUMULIN R SUBQ SCH (06:06)
[2018-11-15 06:39] LABS: ALB/GLOB RATIO 0.8; CALCIUM 9.2 mg/dL (8.8-10.2); CREATININE 2.7 mg/dL (0.7-1.2); POTASSIUM 3.2 mmol/L (3.5-5.1); TOTAL BILIRUBIN 0.53 mg/dL (0.20-1.00); TOTAL PROTEIN 6.7 g/dL (6.3-8.3)
--- NOTE | 2018-11-15 07:43 | Diag Imaging Result Doc PS360 ---
EXAM: CHEST-PORTABLE 11/15/2018 HISTORY: respiratory failure TECHNIQUE: AP portable at 0521 COMMENT: There is an endotracheal tube with its tip slightly below the thoracic inlet. There is an NG tube with its tip below the diaphragm. The inspiration is somewhat less optimal than on 11/14/2018. The heart size remains enlarged. There is somewhat improved atelectasis in both lung bases and the entire left hemidiaphragm is now visible. The pulmonary vascularity remains engorged. IMPRESSION: Cardiomegaly. Improved bibasilar atelectasis. Electronically signed by Hector Faith 11/15/2018 7:41 AM
[2018-11-15] MEDS ORDERED: POTASSIUM CHLORIDE 20 MEQ/SWI 20 MEQ/100 ML IVPB IV SCH (08:00)
[2018-11-15] MEDS: APRESOLINE NG SCH (08:41)
[2018-11-15] MEDS: ISORDIL NG SCH (08:41)
[2018-11-15] MEDS: ARIXTRA SUBQ SCH (08:41)
[2018-11-15] MEDS: ZYVOX 600 MG/D5W 600 MG/300 ML IVPB IV SCH (08:43)
[2018-11-15] MEDS ORDERED: MORPHINE IV PRN (11:36)
[2018-11-15] MEDS ORDERED: ATROPINE 1 % OPHTH SOLN SL PRN (11:38)
--- NOTE | 2018-11-15 12:32 | PROGRESS NOTE ---
DATE: 11/15/2018 SUBJECTIVE: The patient is resting comfortably on the ventilator. No acute events noted overnight. OBJECTIVE: Vital Signs: Temperature 98.2 degrees, blood pressure 114/76, heart rate 110, respirations 22, and O2 saturation 97% on mechanical ventilator. Intake 2.2 L and output 2.4 L. General: This is a chronically ill-appearing elderly male lying comfortably in bed in no acute distress on the ventilator. Head: Normocephalic. Eyes positive for periorbital edema. Heart: S1, S2 normal. Tachycardic. Lungs: Coarse breath sounds bilaterally. Abdomen: Positive bowel sounds. Soft, obese, and nontender. Extremities: 3+ edema bilaterally in the lower extremities and upper extremities. Neurologic: The patient is lethargic. LABORATORY: White blood cell count 7.3, hemoglobin 11, hematocrit 34, and platelets 125,000. Sodium 142, potassium 3.2, chloride 102, CO2 16, BUN 35, creatinine 2.7, and glucose 198. ASSESSMENT: 1. Acute hypoxemic respiratory failure. 2. Acute on chronic systolic congestive heart failure exacerbation. 3. Acute kidney injury on chronic kidney disease. 4. Anasarca. 5. Pulmonary hypertension. 6. Morbid obesity. 7. Protein calorie malnutrition. 8. Diabetes mellitus type 2. 9. Anemia PLAN: I had a discussion with the patient's son, Blake Levi this morning. After explaining the patient's overall prognosis, he has decided to make the patient a DNR Level 1 and to withdraw care and focus on comfort measures. Orders will be placed for comfort measures. The patient will be transferred to a private room on the medical floor. cc: Keisha Galicia MD [facility]
[2018-11-15] MEDS: MORPHINE IV PRN ×3 (14:06→21:09)
[2018-11-15] MEDS: ATIVAN IV PRN ×2 (14:06→23:47)
[2018-11-15] MEDS: TRANSDERM-SCOP TD SCH (14:06)
--- NOTE | 2018-11-15 14:44 | NEPHROLOGY PROGRESS NOTE ---
DATE: 11/15/2018 DATE AND TIME: Date seen 11/15/2018. Time seen 0635. SUBJECTIVE: Mr. Levi is resting quietly in bed. Head of the bed is slightly elevated. He remains ventilator dependent. He appears in no acute distress. OBJECTIVE: Vital Signs: His most recent vital signs: Temperature 98.8 degrees, blood pressure 110/72, heart rate is 110, respirations 24. He is on 40% FiO2. His last recorded saturation is 98%. He has had 2234 in, 2450 out. LABS: His sodium is 142, potassium 3.2, chloride 102, CO2 16, BUN 35, creatinine 2.7, glucose 198, anion gap 24, calcium 9.2, albumin is 3. White count 7.35, hemoglobin 11.8, hematocrit 34.9, with a platelet count of 125,000. PHYSICAL EXAMINATION: General: This is a 67-year-old male. He is currently resting quietly in bed. Head of the bed is slightly elevated. He is in no acute distress. He remains on ventilatory support with sedation. HEENT: Normocephalic, atraumatic. Conjunctivae pale. He has TENISHA. Mucous membranes are dry. Neck: Supple. Trachea midline. No evidence of JVD. Oral ET tube remains in place. Cardiovascular: Regular rate and rhythm. He is tachycardic on the monitor. Lungs: Clear to auscultation bilaterally. Equal excursion with ventilatory support. Abdomen: Diminished bowel sounds. NG tube remains to low intermittent suction. Genitourinary: Not inspected. Adequate urine out documented. Extremities: Have 1+ lower extremity edema. Neurologic: As above. ASSESSMENT AND PLAN: 1. Acute kidney injury overlying chronic kidney disease stage IIIB-4. Patient's BUN and creatinine have remained fairly stable over the last 24-48 hours. Adequate urine out. No indications for intervention. 2. Electrolytes and acid-base balance. These are acceptable. 3. Anemia. This is close to target. 4. Sepsis. Patient remains on renal dosed antibiotics. 5. Fluid volume overload. The patient's edema has improved. He remains on 100 mg of Lasix b.i.d. No indications for changes. I would like to thank you for allowing us to follow with this patient. Dictated by TAMIKA Wiggins for Usman Hewitt MD Face to face encounter, data reviewed, discussed with Alyson Farias on 11/16/18. I agree with the above assessment and plan of care. cc: TAMIKA Wiggins MD MTDD
--- NOTE | 2018-11-15 15:46 | EKG Report ---
Test Performed on : 11/14/2018 7:16:37 PM Test Reason : ED. No order in [place] Blood Pressure : / mmHG Vent. Rate : 096 BPM Atrial Rate : 096 BPM P-R Int : 162 ms QRS Dur : 100 ms QT Int : 392 ms P-R-T Axes : 062 -48 111 degrees QTc Int : 495 ms Normal sinus rhythm. Left atrial enlargement Left axis deviation Incomplete right bundle branch block Nonspecific T wave abnormality Prolonged QT Abnormal ECG When compared with ECG of 13-NOV-2018 11:13, premature ventricular complexes. are no longer present premature supraventricular complexes. are no longer present Confirmed by [place] GARCIA, Devante ([id number]) on 11/16/2018 12:52:16 PM
--- NOTE | 2018-11-15 18:31 | PULMONOLOGY PROGRESS NOTE ---
DATE: 11/15/2018 SUBJECTIVE: The patient remains on mechanical ventilation. He does not respond to voice. He remains fluid-positive during this admission. OBJECTIVE: Heart rate 113, respiratory rate 34, blood pressure 145/86, oxygen saturation 94%. HEENT: Pupils are equal. Oropharynx appears clear, with endotracheal tube in place. Neck is supple. Chest reveals diffuse crackles bilaterally. Cardiac exam: Increased rate, S1, S2. Abdomen is obese and soft, with positive bowel sounds. Extremities reveal 1+ peripheral edema. DIAGNOSTIC DATA: Chest x-ray reveals cardiomegaly with decreased atelectasis in the bases. LABORATORY DATA: Chemistry: Sodium 142, potassium 3.2, chloride 102, bicarbonate 16, BUN 35, creatinine 2.7. White blood count 7.35, hemoglobin 11.8, platelet count 125,000. Arterial blood gas reveals pH 7.48, pCO2 of 34, pO2 of 85. IMPRESSION: A 67-year-old with: 1. Ischemic cardiomyopathy with severe reduction in ejection fraction. 2. Acute pulmonary edema. 3. Acute hypoxemic respiratory failure. 4. Cardiorenal syndrome. 5. Diabetes mellitus. 6. Dementia. 7. History of stroke. 8. Protein-calorie malnutrition. DISCUSSION: This is a 67-year-old with cardiorenal syndrome due to severe reduction in ejection fraction. The patient's respiratory rate does significantly increase when his mechanical ventilation is weaned. He is a poor candidate for extubation at this juncture. Withdrawal of support is being considered. He will likely survive extubation, but his prognosis will be extremely poor. RECOMMENDATIONS: 1. Continue ventilatory support at this juncture. 2. Agree with ongoing palliative care discussions. I would support a compassionate extubation if family decides to pursue this route. 3. Continue comfort measures. 4. Continue tube feeds unless extubated. Time spent in critical care 30-plus minutes. cc: Jaime Torres MD
[2018-11-16] MEDS: ATIVAN IV PRN ×6 (03:21→21:50)
[2018-11-16] MEDS: MORPHINE IV PRN ×6 (07:43→21:49)
[2018-11-16] MEDS: TYLENOL PR PRN (07:44)
[2018-11-16] MEDS ORDERED: MORPHINE IV ONE (09:05)
--- NOTE | 2018-11-16 13:14 | PROGRESS NOTE ---
DATE: 11/16/2018 SUBJECTIVE: The patient was noted to be moaning out in pain this morning. He had some visitors at the bedside sitting with him. OBJECTIVE: Vital Signs: T-max 100.5 degrees, blood pressure 153/103, heart rate 65, respirations 40, O2 saturation 93% on 3 L nasal cannula. General: This is a morbidly obese male lying in bed in mild distress. Head: Normocephalic, atraumatic. Heart: S1, S2 normal. Tachycardic. Lungs: Coarse breath sounds bilaterally. Abdomen: Hypoactive bowel sounds. Distended. Extremities: The patient has anasarca. Neurologic: The patient is awake, but only moans in pain. ASSESSMENT: 1. Acute hypoxemic respiratory failure. 2. Acute on chronic systolic congestive heart failure exacerbation. 3. Acute kidney injury on chronic kidney disease. 4. Anasarca. 5. Pulmonary hypertension. 6. Morbid obesity. 7. Diabetes mellitus type 2. 8. Anemia. PLAN: We will increase the patient's morphine dose to 5 mg IV every hour as needed, and change the Ativan to 1 mg IV every hour p.r.n. cc: Keisha Galicia MD
[2018-11-17] MEDS: MORPHINE IV PRN ×9 (00:01→22:33)
[2018-11-17] MEDS: ATIVAN IV PRN ×8 (00:02→22:33)
--- NOTE | 2018-11-17 20:32 | PROGRESS NOTE ---
DATE: 11/17/2018 SUBJECTIVE: The patient is comatose. OBJECTIVE: Vital Signs: Temperature 101, blood pressure 145/87, heart rate 63, respirations 20, O2 saturation 93% on non-rebreather. General: This is a chronically, ill-appearing, elderly male lying in bed in no acute distress. Heart: S1, S2 normal. Tachycardic. Lungs: Coarse breath sounds bilaterally. Abdomen: Positive bowel sounds. Soft, nontender, nondistended. Extremities: 3+ edema bilaterally in the lower and upper extremities. ASSESSMENT: 1. Acute hypoxemic respiratory failure. 2. Acute on chronic systolic congestive heart failure exacerbation 3. Acute kidney injury on chronic kidney disease. 4. Anasarca. 5. Pulmonary hypertension. 6. Morbid obesity. 7. Diabetes mellitus type 2. 8. Anemia. PLAN: Continue with comfort measures. cc: Keisha Galicia MD
[2018-11-18] MEDS: ATIVAN IV PRN ×7 (00:38→21:02)
[2018-11-18] MEDS: MORPHINE IV PRN ×11 (00:38→21:02)
[2018-11-18] MEDS: ATROPINE 1 % OPHTH SOLN SL PRN (09:33)
[2018-11-18] MEDS: TRANSDERM-SCOP TD SCH ×2 (09:33→12:47)
[2018-11-18] MEDS: LACRI-LUBE OPH OINT BOTH EYES PRN (09:34)
--- NOTE | 2018-11-18 14:18 | PROGRESS NOTE ---
DATE: 11/18/2018 SUBJECTIVE: The patient is comatose. He does have a lot of secretions this morning. OBJECTIVE: Vital Signs: Temperature 99 degrees, blood pressure 153/113, respirations 28, heart rate 103, O2 saturation 96% on a non-rebreather. General: This is a morbidly obese male lying in bed in no acute distress. Heart: S1, S2 normal. Tachycardic. Lungs: Coarse breath sounds bilaterally with crackles. Abdomen: Positive bowel sounds. Soft, nontender. Extremities: 3+ edema. Neurologic: The patient is comatose. ASSESSMENT: 1. Acute hypoxemic respiratory failure. 2. Acute on chronic systolic congestive heart failure exacerbation. 3. Acute kidney injury on chronic kidney disease. 4. Anasarca. 5. Pulmonary hypertension. 6. Morbid obesity. 7. Diabetes mellitus type 2. 8. Anemia. PLAN: Continue with comfort measures. cc: Keisha Galicia MD
[2018-11-19] MEDS: MORPHINE IV PRN ×7 (00:02→22:13)
[2018-11-19] MEDS: ATIVAN IV PRN ×6 (00:02→22:13)
[2018-11-19] MEDS: ATROPINE 1 % OPHTH SOLN SL PRN ×8 (00:07→22:14)
--- NOTE | 2018-11-19 14:34 | PROGRESS NOTE ---
DATE: 11/19/2018 SUBJECTIVE: The patient is resting comfortably. He does moan out in pain occasionally. OBJECTIVE: Vital Signs: Temperature 97.6 degrees, blood pressure 120/77, heart rate 131, respirations 24, O2 saturation is 93% on a nonrebreather mask. General: This is a chronically ill-appearing, elderly male lying in bed, in no acute distress. Heart: S1, S2 normal. Tachycardic. Lungs: Coarse breath sounds with rhonchi and crackles. Abdomen: Hypoactive bowel sounds. Soft. Distended. Extremities: Positive for anasarca. Neurologic: The patient is comatose. ASSESSMENT: 1. Acute hypoxemic respiratory failure. 2. Acute on chronic systolic congestive heart failure exacerbation. 3. Acute kidney injury on chronic kidney disease. 4. Anasarca. 5. Pulmonary hypertension. 6. Morbid obesity. 7. Diabetes mellitus type 2. 8. Anemia. PLAN: Continue with comfort measures. The patient's family intend to take the patient home with hospice on Monday. cc: Keisha Galicia MD
[2018-11-19] MEDS ORDERED: ROXANOL CONC. LIQUID SL PRN (14:50)
[2018-11-19] MEDS: ROXANOL CONC. LIQUID SL PRN ×3 (17:25→20:30)
[2018-11-20] MEDS: ATIVAN IV PRN ×5 (00:07→23:39)
[2018-11-20] MEDS: MORPHINE IV PRN ×5 (00:08→23:38)
[2018-11-20] MEDS: ATROPINE 1 % OPHTH SOLN SL PRN ×5 (00:08→22:42)
[2018-11-20] MEDS: BLISTEX MEDICATED BERRY LIP BALM TOP PRN ×3 (00:09→23:38)
--- NOTE | 2018-11-20 15:47 | PROGRESS NOTE ---
DATE: 11/20/2018 SUBJECTIVE: Patient is resting in bed. Has family present in the room. OBJECTIVE: Vital signs: Temperature 98.5 degrees, pulse 125, respiratory rate is 18, blood pressure is 95/65, oxygen saturation is 100%. HEENT: Head is atraumatic, normocephalic. Cardiovascular System: S1, S2. Respiratory system has rales noted in both lung ramirez. Abdomen is soft, nontender. No masses felt. Extremities: No evidence of edema. Central nervous system: The patient is poorly responsive. LABORATORY DATA: None. ASSESSMENT: 1. Acute hypoxemic respiratory failure. 2. Acute on chronic systolic heart failure. 3. Acute kidney injury superimposed on chronic kidney disease. 4. Anasarca. 5. Pulmonary hypertension. 6. Obesity. 7. Diabetes mellitus, type 2. PLAN: Continue comfort care measures. Note plan to have the patient discharge home with Hospice by Monday. However, family indicates that might be a challenge. cc: Joseph Serrano MD
[2018-11-21] MEDS: MORPHINE IV PRN ×6 (02:37→17:32)
[2018-11-21] MEDS: ATIVAN IV PRN ×6 (02:38→17:33)
[2018-11-21] MEDS: ATROPINE 1 % OPHTH SOLN SL PRN ×6 (02:38→22:41)
--- NOTE | 2018-11-21 11:35 | PROGRESS NOTE ---
DATE: 11/21/2018 SUBJECTIVE: Patient resting in bed. Family present in the room. OBJECTIVE: Vital signs: Temperature 98.4 degrees, pulse 132, respiratory rate 20, blood pressure 108/77, oxygen saturation is 96%. HEENT: He is atraumatic, normocephalic. Cardiovascular System: S1, S2. Respiratory system has evidence of good air entry bilaterally. Abdomen is soft, nontender. No masses felt. Extremities: No evidence of edema. Central nervous system: The patient is unresponsive. LABORATORIES: None ASSESSMENT: 1. Acute hypoxemic respiratory failure. 2. Acute on chronic systolic heart failure. 3. Acute kidney injury superimposed on chronic kidney disease. 4. Anasarca. 5. Pulmonary hypertension. 6. Obesity, 7. Diabetes mellitus, type 2. PLAN: Continue comfort care measures. cc: Joseph Serrano MD
[2018-11-21] MEDS: TRANSDERM-SCOP TD SCH (12:28)
[2018-11-22] MEDS: ATIVAN IV PRN ×5 (04:12→23:16)
[2018-11-22] MEDS: ATROPINE 1 % OPHTH SOLN SL PRN ×2 (04:16→20:28)
[2018-11-22] MEDS: MORPHINE IV PRN ×4 (09:14→23:16)
--- NOTE | 2018-11-22 15:49 | PROGRESS NOTE ---
DATE: 11/22/2018 SUBJECTIVE: The patient is unresponsive and has family present in the room. OBJECTIVE: Vital Signs: Vital signs are as follows: Temperature 100.4 degrees, pulse 96, respiratory rate 20, blood pressure 127/54, oxygen saturation 94%. HEENT: Atraumatic, normocephalic. Cardiovascular system: S1, S2. Tachycardic. Respiratory system: No rales or rhonchi. Abdomen: Full. Nontender. No masses felt. Extremities: No evidence of edema. Central nervous system: The patient is unresponsive. LABS: None. ASSESSMENT: 1. Acute respiratory failure. 2. Acute chronic systolic heart failure. 3. Acute kidney injury superimposed on chronic kidney disease. 4. Pulmonary hypertension. 5. Obesity. 6. Type 2 diabetes mellitus. PLAN: Continue comfort care measures. cc: Joseph Serrano MD
[2018-11-23] MEDS: ATIVAN IV PRN ×2 (08:21→11:55)
[2018-11-23] MEDS: MORPHINE IV PRN (11:12)
[2018-11-23 12:29] VITALS: BP 107/64
--- NOTE | 2018-11-23 12:37 | PROGRESS NOTE ---
DATE: 11/23/2018 SUBJECTIVE: The patient is unresponsive resting in bed. Family present in the room. OBJECTIVE: Vital Signs: Temperature 101.4 degrees, pulse 69, respirations 20, blood pressure 96/47, oxygen is 96%. HEENT: Atraumatic, normocephalic. Has oxygen mask on. Cardiovascular: Distant heart sounds. Respiratory: Rales noted in both lung ramirez. Abdomen: Soft, nontender. No masses felt. Extremities: No evidence of edema. LABORATORY DATA: None. ASSESSMENT: 1. Acute respiratory failure. 2. Acute on chronic systolic heart failure. 3. Acute kidney injury superimposed on chronic kidney disease. 4. Pulmonary hypertension. 5. Type 2 diabetes mellitus. PLAN: Continue comfort care measures. cc: Joseph Serrano MD MTDD
--- NOTE | 2018-12-07 22:45 | DISCHARGE SUMMARY ---
ADMISSION DATE: 11/09/2018 DISCHARGE DATE: 11/23/2018 FINAL DIAGNOSES: 1. Acute hypoxic respiratory failure. 2. Acute pulmonary edema. 3. Ischemic cardiomyopathy with severe reduction in ejection fraction. 4. Cardiorenal syndrome. 5. Diabetes mellitus. 6. Dementia. 7. History of strokes. 8. Protein-calorie malnutrition. HOSPITAL COURSE: Mr. Jaime Levi is a 67-year-old male who was admitted to the hospital because of shortness of breath. He was noted to have [id number] systolic and diastolic congestive heart failure with dilated nonischemic cardiomyopathy, with ejection fraction of about 15% to 20%. The patient subsequently required intubation because of respiratory failure and was seen by the pulmonary team. He did require pressors because of hypotension. The patient did require diuretics because of his congestive heart failure. He was placed on Primacor at a low dose. The patient remained on ventilation support. It was thought that the patient's overall prognosis was not good, and he was made DNR. Care was subsequently withdrawn, and the patient was placed on comfort measures. The patient subsequently on 11/23/2018. cc: Joseph Serrano MD
== END 2018-11-23 12:24 | disposition hospice, inpatient (51) | DRG 870 ==
LOC: SUPCPDRO → ED 08:56 → SUATTDRO 12:36 → EDIPHOLD 12:36 → 3S 13:54 → EDIPHOLD 15:18 → ICU 21:54 → 4N 11-15 17:46
PROVIDERS: ATTEND Internal Medicine
CPT/HCPCS: 31500; 51702; 70450; 71010; 71020; 71045; 71046; 74176; 76700; 80053; 81001; 82150; 82533; 82550; 82553; 82570; 82805; 82948; 83605; 83690; 83735; 83880; 84100; 84156; 84300; 84439; 84443; 84484; 84540; 85025; 85049; 85610; 85730; 87040; 87070; 87205; 93005; 93010; 93308; 93970; 94002; 94003; 94640; 94761; 96365; 96367; 96375; 96376; 99285; A9270; J1630; J1652; J1720; J1940; J2020; J2060; J2260; J2270; J2543; J3370; J3480; J7030; J7040; XXXXX

== ENCOUNTER 2018-11-23 12:25 | Inpatient (IN) ==
[2018-11-23] MEDS ORDERED: BLISTEX MEDICATED BERRY LIP BALM TOP PRN (13:22)
[2018-11-23] MEDS ORDERED: LACRI-LUBE OPH OINT OPH PRN (13:22)
[2018-11-23] MEDS ORDERED: HALDOL IV PRN (13:30)
[2018-11-23] MEDS ORDERED: HALDOL LIQUID PO PRN (13:32)
[2018-11-23] MEDS ORDERED: DULCOLAX PR PRN (13:34)
[2018-11-23] MEDS ORDERED: PHENERGAN PO PRN (13:35)
[2018-11-23] MEDS ORDERED: LEVSIN-SL SL PRN (13:35)
[2018-11-23] MEDS ORDERED: PHENERGAN IV PRN (13:36)
[2018-11-23] MEDS ORDERED: PHENERGAN PR PRN (13:36)
[2018-11-23] MEDS ORDERED: SODIUM CHLORIDE 0.9% INJ PRN (13:45)
[2018-11-23] MEDS: ATIVAN IV PRN ×2 (18:25→21:10)
[2018-11-23] MEDS: MORPHINE IV PRN ×2 (18:25→21:10)
[2018-11-23] MEDS: TRANSDERM-SCOP TD SCH (18:58)
[2018-11-23] MEDS: ATROPINE 1 % OPHTH SOLN SL PRN (21:10)
[2018-11-24] MEDS: ATROPINE 1 % OPHTH SOLN SL PRN ×3 (02:40→23:20)
[2018-11-24] MEDS: ATIVAN IV PRN ×4 (02:41→23:19)
[2018-11-24] MEDS: MORPHINE IV PRN ×4 (02:42→23:19)
[2018-11-24] MEDS ORDERED: BLISTEX MEDICATED BERRY LIP BALM TOP PRN (02:53)
--- NOTE | 2018-11-24 18:26 | PROGRESS NOTE ---
DATE: 11/24/2018 SUBJECTIVE: Mr. Levi is currently under comfort care and hospice care. No new complaints. The family, the sister and another male family member were at the bedside at the time of the encounter. They denied any new complaints or any new needs. OBJECTIVE: Current vitals: Blood pressure is 84/71, pulse is 73, respirations 24, temperature 97.7. The patient is saturating 98% on 15 L. General: Mr. Levi is a 67-year-old gentleman. He is in bed. No distress. HEENT:: Mucosa is pink and moist. Anicteric. Acyanotic. Neck: Supple. Chest: Air entry is bilaterally reduced. There is some crackles and rhonchi in both lung ramirez. Cardiovascular: Regular rate and rhythm. SURGICAL TECHNOLOGY INSTRUCTOR: Patient was stuporous and minimally responsive. LAB WORK: None today. ASSESSMENT: 1. Acute hypoxemic respiratory failure. 2. Acute on chronic systolic heart failure. 3. Acute on chronic renal failure. 4. Diabetes type 2. 5. Severe nonischemic dilated cardiomyopathy. 6. History of atrial fibrillation. PLAN: 1. Comfort care. 2. For now, we will continue with the current management. I will offer oral support for the family at this difficult time. cc: Amarjit Dunn MD
[2018-11-25] MEDS: ATIVAN IV PRN ×3 (06:39→19:40)
[2018-11-25] MEDS: MORPHINE IV PRN ×4 (06:39→19:40)
[2018-11-25] MEDS: ATROPINE 1 % OPHTH SOLN SL PRN ×3 (08:51→18:03)
--- NOTE | 2018-11-25 13:20 | PROGRESS NOTE ---
DATE: 11/25/2018 SUBJECTIVE: The patient is resting in bed. He is unresponsive. Has family present in the room. OBJECTIVE: Vital Signs: Temperature 98.3 degrees, pulse 66, respirations 23, blood pressure is 80/51, oxygen saturation 94%. HEENT: He is atraumatic, normocephalic. Cardiovascular System: S1, S2. Respiratory System: Has occasional rales noted in the lung ramirez. Abdomen: Soft, nontender. No masses felt. Extremities: No significant edema in the lower extremities. Central Nervous System: The patient is unresponsive. Laboratory Data: None. ASSESSMENT: 1. Acute hypoxic respiratory failure. 2. Acute on chronic systolic heart failure. 3. Acute on chronic renal failure. 4. Type 2 diabetes mellitus. 5. Severe nonischemic dilated cardiomyopathy. 6. History of atrial fibrillation. PLAN: Continue comfort care measures. cc: Joseph Serrano MD
[2018-11-26] MEDS: MORPHINE IV PRN ×3 (00:24→11:49)
[2018-11-26] MEDS: ATIVAN IV PRN ×2 (00:24→05:34)
--- NOTE | 2018-11-26 11:46 | PROGRESS NOTE ---
DATE: 11/26/2018 SUBJECTIVE: Patient resting in bed. He is unresponsive. Family is present in the room. OBJECTIVE: Vital signs: Temperature 99 degrees, pulse 98, respirations 20, blood pressure is 95/56, oxygen saturation 93%. HEENT: Atraumatic, normocephalic. Cardiovascular System: Distant heart sounds. Respiratory system has rhonchi noted in both lung ramirez. Abdomen is soft, nontender. No masses felt. Extremities: No evidence of edema. Central nervous system: The patient is unresponsive. LABORATORIES: None. ASSESSMENT: 1. Acute hypoxic respiratory failure. 2. Acute on chronic systolic heart failure. 3. Acute on chronic renal failure. 4. Type 2 diabetes mellitus. 5. Severe nonischemic dilated cardiomyopathy. 6. History of atrial fibrillation. PLAN: Continue comfort care measures only. cc: Joseph Serrano MD
[2018-11-26] MEDS: TYLENOL PR PRN (15:30)
[2018-11-26] MEDS: TRANSDERM-SCOP TD SCH (15:30)
[2018-11-27] MEDS: MORPHINE IV PRN ×2 (04:39→08:12)
[2018-11-27 07:20] VITALS: BP 94/73
--- NOTE | 2018-11-27 11:06 | PROGRESS NOTE ---
DATE: 11/27/2018 SUBJECTIVE: Patient is lying comfortably in bed, weak, cough, his sister is at the bedside, he is lethargic and minimally responsive. OBJECTIVE: Vital Signs: Temperature 99 degrees, pulse 107, respiratory rate 22, blood pressure 94/73, oxygen saturation 92 on a Venturi mask. HEENT: Head normocephalic. No trauma. Sclerae are pink. Neck: Supple. No JVD. Central trachea. Chest: Bilateral crackles and rhonchi. Cardiovascular: Regular rate and rhythm. Neurological: This patient is lethargic and minimally responsive. LABORATORY DATA: No lab work done today. ASSESSMENT AND PLAN: 1. Acute hypoxemic respiratory failure. 2. Acute on chronic systolic heart failure. 3. Acute on chronic renal failure. 4. Type 2 diabetes. 5. Severe nonischemic dilated cardiomyopathy. 6. History of atrial fibrillation. PLAN: this patient is DNR level 1. We will continue with comfort measures only. cc: Jaison Matthews MD
[2018-11-27] MEDS: TYLENOL PR PRN (14:57)
--- NOTE | 2018-11-28 15:12 | DISCHARGE SUMMARY ---
ADMISSION DATE: 11/23/2018 DISCHARGE DATE: 11/27/2018 ADMISSION DIAGNOSES: 1. Acute hypoxemic respiratory failure. 2. Acute on chronic systolic heart failure. 3. Acute on chronic renal failure. 4. Type 2 diabetes. 5. Severe nonischemic dilated cardiomyopathy. 6. History of atrial fibrillation. DISCHARGE DIAGNOSES: 1. Acute hypoxemic respiratory failure. 2. Acute on chronic systolic heart failure. 3. Acute on chronic renal failure. 4. Type 2 diabetes. 5. Severe nonischemic dilated cardiomyopathy. 6. History of atrial fibrillation. DATE OF : 11/27/2018 CAUSE OF : Acute hypoxemic respiratory failure. TIME OF : 1959 hours on 11/27/2018. HOSPITAL COURSE: Mr. Leiv is a 67-year-old male with multiple medical problems who was initially admitted through our service on 11/09/2018 for acute on chronic diastolic and systolic heart failure with a known EF of 15% to 20%. He also had bilateral upper lobe pneumonia with sepsis along with chronic comorbidities of hypothyroidism and type 2 diabetes along with dementia. He was initially treated with supplemental O2 via face mask nonrebreather nasal cannula, however, these attempts failed him and he required mechanical ventilation and was intubated. He was started on a milrinone drip for his acute heart failure and Nephrology was consulted for his renal failure. Unfortunately, the patient did not recover and it was ultimately felt that he would not survive this hospitalization. After discussions with multiple subspecialists, Mr. Levi's son finally decided to make him a DNR Level 1 and withdraw care on 11/15/2018. He was placed on comfort measures. He did survive the extubation and was continued on FiO2 and transferred to the floor. Initially the decision was to go home with hospice, however, ultimately the family decided on inpatient hospice. He was admitted to inpatient hospice on 11/23/2018 and placed on comfort measures. He was pronounced on 11/27/2018 at 1959 hours. The body was released to the family. All questions were answered and emotional support was given as well. Dictated by TAMIKA Markham for Jaison Matthews MD cc: TAIMKA Markham MD James E. Boyle, MD Reginald D. Gladish, MD William D. Denney, MD
== END 2018-11-27 19:59 | disposition expired | DRG 947 ==
LOC: 4N 12:25 → SUATTDRO 12:25 → 4N 16:18
PROVIDERS: ATTEND Internal Medicine
CPT/HCPCS: 94761; A9270; J2060; J2270